=== PATIENT | female | born 1950 | race Caucasian/White ===

== ENCOUNTER 2017-11-22 01:05 | Emergency (ER) | payer MEDICARE ==
[~2017-11-22] VITALS: Ht 165.1 cm; Wt 72.6 kg
[~2017-11-22 01:05] MED LIST: ACET500T73 PO; ALPR0.5T PO; ASPI-667 PO; BUDE0.5A3 IH; BUDE0.5A3 NEB; BUPR150T6 PO; CARI350T14 PO; CEFP200T PO; CEFT1FRO2 IV; CLOP75TA52 PO; CYAN1TAB29 PO; DEXA1TAB PO; DONE5TAB53 PO; DULO30CA2 PO; FENT1PAT76 TD; GUAI200T3 PO; GUAI600T31 PO; HYDR-3470 PO; IBUP200T63 PO; IBUPROFEN; LEVE10007 PO; LEVO750T25 PO; LISI1TAB7 PO; LOSA1TAB22 PO; METH40VI2 IJ; MORP5VIA IV; Magnesium Oxide PO; NEBI5TAB2 PO; NITR100C58 PO; PANT40TA5 PO; PANT40VI IV; POTA20TA89 PO; PROP20TA PO; SIMV40TA3 PO; TRAM50TA PO; VANC1VIA3 IV; [UNRECOGNIZED DRUG - OTHER]
[2017-11-22] MEDS ORDERED: CATAPRES ONE (01:23)
[2017-11-22 01:24] VITALS: BP 198/117
[2017-11-22] MEDS ORDERED: CATAPRES PO STA (01:24)
[2017-11-22 01:27] VITALS: BP 204/121
[2017-11-22] MEDS ORDERED: NITROSTAT SL PRN (01:30)
--- NOTE | 2017-11-22 01:32 | ER.PDOC ---
General Chief Complaint: General Complaint Stated Complaint: HIGH BLOOD PRESSURE TRAVEL OUT OF US: No Time seen by MD: 01:30 Source: patient Exam Limitations: no limitations History of Present Illness Initial Comments Elevated blood pressure at home. Severity: moderate Associated Symptoms: headaches (mild) Allergies: Coded Allergies: codeine (Verified Allergy, Severe, ITCHING, 05/29/16) Home Meds Active Scripts [Magnesium Oxide] 400 MG TABLET No Conflict Check, 400 MG PO DAILY for 30 Days, #30 TAB Prov:MICHELLE PLEITEZ MD 01/08/17 Potassium Chloride (Potassium Chloride) 20 Meq Tablet.er, 20 MEQ PO ACD for HYPOKALEMIA for 30 Days, #30 TAB Prov:MICHELLE PLEITEZ MD 01/08/17 Donepezil Hcl (ARICEPT) 5 Mg Tablet, 5 MG PO BID for 30 Days, #60 TABLET Prov:MICHELLE PLEITEZ MD 01/08/17 Nitrofurantoin Monohyd/M-Cryst (MACROBID 100 MG CAPSULE) 100 Mg Capsule, 100 MG PO BID for 10 Days, #20 CAPSULE Prov:MICHELLE PLEITEZ MD 01/08/17 Propranolol Hcl (PROPRANOLOL HCL) 20 Mg Tablet, 1-2 TAB PO Q6HR PRN for Hypertension SBP>160 for 30 Days, #60 TAB 2 Refills Take 1 tablets every 6-8 hours as needed for BP>150/90. Take 2 tablets if BP>170/100. Prov:MICHELLE PLEITEZ MD 10/26/16 Cyanocobalamin/Folic Acid (VITAMIN L85-HHSAY ACID TABLET) 1 Each Tablet, 1 EACH PO DAILY for B12 deficiency poor nutrition for 30 Days, #30 TAB 3 Refills Prov:MICHELLE PLEITEZ MD 10/25/16 Tramadol Hcl (TRAMADOL HCL) 50 Mg Tablet, 50 MG PO Q4HR PRN for PAIN for 10 Days , #60 TABLET 0 Refills Take 1 tablet every 4 hours as needed for post-traumatic headache pain. Prov:MICHELLE PLEITEZ MD 07/26/16 Acetaminophen (ACETAMINOPHEN) 500 Mg Tablet, 1000 MG PO Q6HR PRN for PAIN for 30 Days, #50 TABLET Take 1-2 tablets every 6 hours as needed for headache pain. Prov:MICHELLE PLEITEZ MD 07/26/16 Reported Medications Pantoprazole Sodium (PANTOPRAZOLE SODIUM) 40 Mg Tablet.dr, 40 MG PO DAILY 07/25/16 Levetiracetam (LEVETIRACETAM) 1,000 Mg Tablet, 2000 MG PO HS 03/27/13 Past Medical History Medical History: arrhythmia, hypertension Surgical History: back, cholecystectomy, hysterectomy Social History Smoking: non-smoker Alcohol Use: none Drug Use: none Review of Systems Constitutional: no symptoms reported EENTM: no symptoms reported Respiratory: no symptoms reported Cardiovascular: no symptoms reported Gastrointestinal: no symptoms reported Genitourinary: no symptoms reported All Other Systems: Reviewed and Negative Physical Exam General Appearance: No Apparent Distress, WD/WN EENT: eyes nml inspection Neck: Non-Tender, Full Range of Motion, Supple Respiratory: chest non-tender, lungs clear, normal breath sounds CVS: reg rate & rhythm, no murmur, no gallop, pulses nml Gastrointestinal: Normal Bowel Sounds, No Organomegaly, No Pulsatile Mass, Non Tender Back: Normal Inspection Extremities: Normal Range of Motion Neurologic/Psychiatric: sat tutor II-XII NML as Tested Skin: Normal Color Results/Orders Results/Orders Administered Medications Medications (Trade) Dose Ordered Sig/Veronica Route PRN Reason Start Time Stop Time Status Last Admin Dose Admin Clonidine (Catapres) 0.2 mg STAT STAT PO 11/22/17 01:24 11/22/17 01:30 DC 11/22/17 01:38 Nitroglycerin (Nitrostat) 0.4 mg PRN PRN SL CHEST PAIN 11/22/17 01:30 12/22/17 01:29 11/22/17 01:38 Clonazepam (Klonopin) 0.5 mg STAT STAT PO 11/22/17 01:33 11/22/17 01:34 DC 11/22/17 01:38 Departure Time of Disposition: 02:24 Disposition: 01 HOME, SELF-CARE Impression: Primary Impression: Uncontrolled hypertension Condition: Improved Referrals: MICHELLE PLEITEZ MD (PCP) PRIMARY CARE PROVIDER Additional Instructions: Continue home medications Keep a blood pressure diary Duration or Time Spent with Pa: 45 mins ALEXEY SAPP MD Nov 22, 2017 01:32
[2017-11-22] MEDS ORDERED: KLONOPIN PO STA (01:33)
[2017-11-22] MEDS ORDERED: KLONOPIN ONE (01:35)
[2017-11-22 01:45] VITALS: BP 182/104
[2017-11-22 02:04] VITALS: BP 189/111
[2017-11-22 02:30] VITALS: BP 150/90
[2017-11-22 02:45] VITALS: BP 150/90
== END 2017-11-22 02:40 | disposition home or self-care (01) ==
LOC: ER 01:05
DX: I10 Essential (primary) hypertension (principal); Z88.5 Allergy status to narcotic agent; Z90.49 Acquired absence of other specified parts of digestive tract; Z90.710 Acquired absence of both cervix and uterus
CPT/HCPCS: 99284

== ENCOUNTER 2018-10-09 16:10 | Emergency (ER) | payer MEDICARE ==
[~2018-10-09] VITALS: Ht 165.1 cm; Wt 65.8 kg
[2018-10-09 16:55] VITALS: BP 180/109
--- NOTE | 2018-10-09 16:56 | NUR ---
ARRIVAL PATIENT ARRIVED TO ED[facility] AMBULATORY WITH FAMILY, C/O OF RIGHT ELBOW PAIN FROM A FALL TODAY, PATIENT STATES SHE FELL OFF THE CURB, SMALL ABRASION AND MILD SWELLING NOTED. CAME TO THE ED FOR EVAL.
[2018-10-09] MEDS ORDERED: BOOSTRIX TDAP IM ONE (17:00)
[2018-10-09] MEDS ORDERED: ADACEL VIAL IM ONE (17:00)
--- NOTE | 2018-10-09 17:30 | ER.PDOC ---
General Chief Complaint: Extremities Stated Complaint: ARM INJURY Time seen by MD: 17:22 Source: patient Exam Limitations: no limitations History of Present Illness Occurred: just prior to arrival Where: street Severity: mild Modifying Factors: pain on movement Allergies: Coded Allergies: codeine (Verified Allergy, Severe, ITCHING, 05/29/16) Home Meds Active Scripts [Magnesium Oxide] 400 MG TABLET No Conflict Check, 400 MG PO DAILY for 30 Days, #30 TAB Prov:MICHELLE PLEITEZ MD 01/08/17 Potassium Chloride (Potassium Chloride) 20 Meq Tablet.er, 20 MEQ PO ACD for HYPOKALEMIA for 30 Days, #30 TAB Prov:MICHELLE PLEITEZ MD 01/08/17 Donepezil Hcl (ARICEPT) 5 Mg Tablet, 5 MG PO BID for 30 Days, #60 TABLET Prov:MICHELLE PLEITEZ MD 01/08/17 Nitrofurantoin Monohyd/M-Cryst (MACROBID 100 MG CAPSULE) 100 Mg Capsule, 100 MG PO BID for 10 Days, #20 CAPSULE Prov:MICHELLE PLEITEZ MD 01/08/17 Propranolol Hcl (PROPRANOLOL HCL) 20 Mg Tablet, 1-2 TAB PO Q6HR PRN for Hypertension SBP>160 for 30 Days, #60 TAB 2 Refills Take 1 tablets every 6-8 hours as needed for BP>150/90. Take 2 tablets if BP>170/100. Prov:MICHELLE PLEITEZ MD 10/26/16 Cyanocobalamin/Folic Acid (VITAMIN V11-VZVYC ACID TABLET) 1 Each Tablet, 1 EACH PO DAILY for B12 deficiency poor nutrition for 30 Days, #30 TAB 3 Refills Prov:MICHELLE PLEITEZ MD 10/25/16 Tramadol Hcl (TRAMADOL HCL) 50 Mg Tablet, 50 MG PO Q4HR PRN for PAIN for 10 Days, #60 TABLET 0 Refills Take 1 tablet every 4 hours as needed for post-traumatic headache pain. Prov:MICHELLE PLEITEZ MD 07/26/16 Acetaminophen (ACETAMINOPHEN) 500 Mg Tablet, 1000 MG PO Q6HR PRN for PAIN for 30 Days, #50 TABLET Take 1-2 tablets every 6 hours as needed for headache pain. Prov:MICHELLE PLEITEZ MD 07/26/16 Reported Medications Pantoprazole Sodium (PANTOPRAZOLE SODIUM) 40 Mg Tablet.dr, 40 MG PO DAILY 07/25/16 Levetiracetam (LEVETIRACETAM) 1,000 Mg Tablet, 2000 MG PO HS 03/27/13 Past Medical History Medical History: hypertension Surgical History: back, hysterectomy LMP (females 10-50): postmenopause Social History Smoking: non-smoker Alcohol Use: none Drug Use: none Reviewed Nursing Reviewed: Vital Signs, Abn. Noted Review of Systems All Other Systems: Reviewed and Negative Physical Exam General Appearance: Alert, No Apparent Distress Hand: nml inspection, non-tender Wrist: nml inspection, non-tender, nml ROM Forearm/Elbow: nml ROM, tenderness, swelling Arm/Shoulder: nml inspection, non-tender, nml ROM 1 - TENDER 1 - TENDER, ABRAISON, EDEMA Neuro/Vasc/Tendon: sensation nml, motor nml, no vascular compromise, tendon function nml Skin: warm/dry Head/ENT: nml inspection, pharynx nml Neck/Back: nml inspection, non-tender Respiratory: chest non-tender, breath sounds nml CVS: heart sounds normal Abdomen: non-tender, no organomegaly Results/Orders Results/Orders Orders - CHELA HOYT MD Xr Forearm Rt (10/09/18 16:56) Diphth,Pertuss(Acell),Tet Vac (Boostrix (10/09/18 17:00) Diph,Pertuss(Acell),Tet Vac/Pf (Adacel V (10/09/18 17:00) Vital Signs Date Time Temp Pulse Resp B/P (MAP) Pulse Ox O2 Delivery O2 Flow Rate FiO2 10/09/18 16:55 98.2 96 18 180/109 (132) 93 Nasal Canula 2.00 10/09/18 16:52 98.2 96 18 93 Nasal Canula 10/09/18 16:51 98.2 96 18 Administered Medications Medications (Trade) Dose Ordered Sig/Veronica Route PRN Reason Start Time Stop Time Status Last Admin Dose Admin Diphtheria/ Tetanus/Acell Pertussis (Boostrix Tdap) 0.5 ml ONCE ONCE IM 10/09/18 17:00 10/09/18 17:02 DC 10/09/18 17:04 0.5 ML Departure Time of Disposition: 17:33 Disposition: 01 HOME, SELF-CARE Impression: Primary Impression: Contusion Condition: Improved Referrals: MICHELLE PLEITEZ MD (PCP) PRIMARY CARE PROVIDER Duration or Time Spent with Pa: 18 M CHELA HOYT MD Oct 09, 2018 17:30
[2018-10-09 17:31] VITALS: BP 177/93
--- NOTE | 2018-10-09 17:38 | DIREP ---
PROCEDURE:XRAY FOREARM 2 VWS-RT COMPARISON:None. INDICATIONS:fall FINDINGS: BONES:No fracture identified. Degenerative change, including marginal osteophytosis subchondral sclerosis JOINTS:Normal. SOFT TISSUES:Normal. OTHER:No additional findings. CONCLUSION: 1. No fracture identified. 2. Degenerative change. Dictated by: Santiago Dey MD on 10/09/2018 at 05:36 PM
== END 2018-10-09 17:45 | disposition home or self-care (01) ==
LOC: ER 16:10
DX: S50.11XA Contusion of right forearm, initial encounter (principal); I10 Essential (primary) hypertension; Z23 Encounter for immunization; Z79.899 Other long term (current) drug therapy; Z88.5 Allergy status to narcotic agent; Z90.710 Acquired absence of both cervix and uterus; W10.1XXA Fall (on)(from) sidewalk curb, initial encounter; Y93.89 Activity, other specified; Y92.488 Other paved roadways as the place of occurrence of the external cause; Y99.8 Other external cause status
CPT/HCPCS: 90471; 90715; 99284; 73090-RT

== ENCOUNTER 2018-11-28 00:12 | Emergency (ER) | payer MEDICARE ==
[~2018-11-28] VITALS: Ht 165.1 cm; Wt 81.6 kg
[~2018-11-28 00:12] MED LIST changes: +LISI1TAB20 PO; -LISI1TAB7 PO
--- NOTE | 2018-11-28 00:30 | NUR ---
ARRIVAL PT ARRIVED TO THE ED ACCOMPANIED BY HER C/O HEADACHE AND BURNING STOMACH. PT PLACED ON CP MONITOR AND TRIAGE DONE
[2018-11-28 00:33] VITALS: BP 204/107
[2018-11-28] MEDS ORDERED: CATAPRES PO STA ×2 (00:33→01:56)
[2018-11-28] MEDS ORDERED: ULTRAM PO STA (00:33)
--- NOTE | 2018-11-28 00:37 | ER.PDOC ---
General Chief Complaint: Headache Stated Complaint: NAUSEA,HIGH BP, HAEACHE TRAVEL OUT OF US: No Time seen by MD: 12:33 Source: patient Exam Limitations: no limitations History of Present Illness Timing/Duration: 4-6 hours Severity: moderate Modifying Factors: improves with medication, improves with rest Associated Symptoms: headaches, nausea/vomiting Allergies: Coded Allergies: codeine (Verified Allergy, Severe, ITCHING, 05/29/16) Home Meds Active Scripts [Magnesium Oxide] 400 MG TABLET No Conflict Check, 400 MG PO DAILY for 30 Days, #30 TAB Prov:MICHELLE PLEITEZ MD 01/08/17 Potassium Chloride (Potassium Chloride) 20 Meq Tablet.er, 20 MEQ PO ACD for HYPOKALEMIA for 30 Days, #30 TAB Prov:MICHELLE PLEITEZ MD 01/08/17 Donepezil Hcl (ARICEPT) 5 Mg Tablet, 5 MG PO BID for 30 Days, #60 TABLET Prov:MICHELLE PLEITEZ MD 01/08/17 Nitrofurantoin Monohyd/M-Cryst (MACROBID 100 MG CAPSULE) 100 Mg Capsule, 100 MG PO BID for 10 Days, #20 CAPSULE Prov:MICHELLE PLEITEZ MD 01/08/17 Propranolol Hcl (PROPRANOLOL HCL) 20 Mg Tablet, 1-2 TAB PO Q6HR PRN for Hypertension SBP>160 for 30 Days, #60 TAB 2 Refills Take 1 tablets every 6-8 hours as needed for BP>150/90. Take 2 tablets if BP>170/100. Prov:MICHELLE PLEITEZ MD 10/26/16 Cyanocobalamin/Folic Acid (VITAMIN A51-XYTEL ACID TABLET) 1 Each Tablet, 1 EACH PO DAILY for B12 deficiency poor nutrition for 30 Days, #30 TAB 3 Refills Prov:MICHELLE PLEITEZ MD 10/25/16 Tramadol Hcl (TRAMADOL HCL) 50 Mg Tablet, 50 MG PO Q4HR PRN for PAIN for 10 Days, #60 TABLET 0 Refills Take 1 tablet every 4 hours as needed for post-traumatic headache pain. Prov:MICHELLE PLEITEZ MD 07/26/16 Acetaminophen (ACETAMINOPHEN) 500 Mg Tablet, 1000 MG PO Q6HR PRN for PAIN for 30 Days, #50 TABLET Take 1-2 tablets every 6 hours as needed for headache pain. Prov:MICHELLE PLEITEZ MD 07/26/16 Reported Medications Pantoprazole Sodium (PANTOPRAZOLE SODIUM) 40 Mg Tablet.dr, 40 MG PO DAILY 07/25/16 Levetiracetam (LEVETIRACETAM) 1,000 Mg Tablet, 2000 MG PO HS 03/27/13 Past Medical History Medical History: hypertension Surgical History: back, cholecystectomy, hysterectomy LMP (females 10-50): hysterectomy Social History Smoking: non-smoker Alcohol Use: none Drug Use: none Reviewed Nursing Reviewed: Vital Signs, Abn. 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 (11/28/18 00:32) Helicobacter Pylori (11/28/18 00:32) D-Dimer (11/28/18 00:32) Ekg-Routine (11/28/18 00:32) Clonidine Hcl (Catapres) (11/28/18 00:33) Tramadol Hcl (Ultram) (11/28/18 00:33) Clonidine Hcl (Catapres) (11/28/18 00:52) Tramadol Hcl (Ultram) (11/28/18 00:53) Ondansetron (Zofran Odt) (11/28/18 01:06) Famotidine (Pepcid) (11/28/18 01:06) Ondansetron (Zofran Odt) (11/28/18 01:07) Famotidine (Pepcid) (11/28/18 01:08) Mag Hydrox/Aluminum Hyd/Simeth (Mylanta) (11/28/18 01:24) Lidocaine Hcl (Lidocaine Viscous) (11/28/18 01:24) Dicyclomine Hcl (Bentyl Liquid) (11/28/18 01:24) Lidocaine Hcl (Lidocaine Viscous) (11/28/18 01:30) Dicyclomine Hcl (Bentyl Liquid) (11/28/18 01:31) Mag Hydrox/Aluminum Hyd/Simeth (Mylanta) (11/28/18 01:32) Clonidine Hcl (Catapres) (11/28/18 01:56) Clonidine Hcl (Catapres) (11/28/18 02:00) Vital Signs Date Time Temp Pulse Resp B/P (MAP) Pulse Ox O2 Delivery O2 Flow Rate FiO2 11/28/18 02:04 63 195/85 11/28/18 01:07 61 196/98 11/28/18 00:33 97.8 59 20 11/28/18 00:33 97.8 59 20 204/107 (139) 99 Room Air 11/28/18 00:30 97.8 59 20 99 Room Air Administered Medications Medications (Trade) Dose Ordered Sig/Veronica Route PRN Reason Start Time Stop Time Status Last Admin Dose Admin Clonidine (Catapres) 0.1 mg STAT STAT PO 11/28/18 01:56 11/28/18 01:57 DC 11/28/18 02:04 0.1 MG Clonidine (Catapres) 0.2 mg STAT STAT PO 11/28/18 00:33 11/28/18 00:35 DC 11/28/18 01:07 0.2 MG Dicyclomine HCl (Bentyl Liquid) 20 mg STAT STAT PO 11/28/18 01:24 11/28/18 01:27 DC 11/28/18 01:38 20 MG Famotidine (Pepcid) 20 mg STAT STAT PO 11/28/18 01:06 11/28/18 01:08 DC 11/28/18 01:13 20 MG Lidocaine HCl (Lidocaine Viscous) 15 ml STAT STAT MM 11/28/18 01:24 11/28/18 01:27 DC 11/28/18 01:38 15 ML Ondansetron HCl (Zofran Odt) 4 mg STAT STAT SL 11/28/18 01:06 11/28/18 01:08 DC 11/28/18 01:13 4 MG Tramadol HCl (Ultram) 100 mg STAT STAT PO 11/28/18 00:33 11/28/18 00:35 DC 11/28/18 01:07 100 MG Laboratory Tests Test 11/28/18 00:36 White Blood Count 9.1 10^3/uL (4.5-11.0) Red Blood Count 4.46 10^6/uL (4.00-5.20) Hemoglobin 13.3 g/dL (12.0-15.0) Hematocrit 38.1 % (36.0-46.0) Mean Corpuscular Volume 85.4 fL (78-100) Mean Corpuscular Hemoglobin 29.8 pg (26-34) Mean Corpuscular Hemoglobin Concent 34.9 g/dL (33-37) Red Cell Distribution Width 13.2 % (11.5-14.5) Platelet Count 255 10^3/uL (150-400) Mean Platelet Volume 11.4 fL (7.8-11.0) H Neutrophils (%) (Auto) 65.0 % (41.0-85.0) Lymphocytes (%) (Auto) 24.6 % (24.0-44.0) Monocytes (%) (Auto) 8.4 % (5.0-12.0) Neutrophils # (Auto) 5.9 10^3/uL (1.8-7.7) Lymphocytes # (Auto) 2.3 10^3/uL (1.0-4.8) Monocytes # (Auto) 0.8 10^3/uL (0.3-0.8) Absolute Immature Granulocyte (auto 0.02 10^3 u/L (0-2) Immature Granulocytes % 0.20 % (0.00-0.50) Eosinophils % 1.4 % (0.0-5.0) Basophils % 0.4 % (0.0-0.2) H Basophils # 0.0 10^3/uL (0.0-0.1) Eosinophil Count 0.1 10^3/uL (0.0-0.2) Prothrombin Time 9.9 SEC (9.4-11.5) Prothrombin Time INR (Non-Therap) 1.0 Activated Partial Thromboplast Time 23.4 SEC (24.67-30.72) D-Dimer 0.39 mg/L (0.19-0.49) Sodium Level 137 mmol/L (132-145) Potassium Level 3.9 mmol/L (3.6-5.2) Chloride Level 104.0 mmol/L (96-109) Carbon Dioxide Level 26.3 mmol/L (20.0-32) Anion Gap 10.6 Blood Urea Nitrogen 15 mg/dL (7-18) Creatinine 1.24 mg/dL (0.59-1.40) Estimated GFR () 51.9 (>/=60) BUN/Creatinine Ratio 12.0 Glucose Level 119 mg/dL (70-110) H Calcium Level 9.0 mg/dL (8.4-10.5) Total Bilirubin 0.3 mg/dL (0.2-1.0) Aspartate Amino Transferase (AST) 28 U/L (0-35) Alanine Aminotransferase (ALT) 9 U/L (12-78) L Alkaline Phosphatase 106 U/L (50-136) Total Creatine Kinase 51 U/L (26-192) Troponin I < 0.02 ng/mL (0.00-0.05) Pro-B-Type Natriuretic Peptide 214 pg/mL (0-125) H Total Protein 6.8 g/dL (6.4-8.2) Albumin 3.3 g/dL (3.4-5.0) L Globulin 3.5 Helicobacter pylori Screen NEGATIVE (NEGATIVE) EKG/XRAY/CT/US EKG: NSR, no ST T wave changes Course Sepsis Screening Results: Posi: POSITIVE SEPSIS RISK Duration or Total Time Spent w: 18 M Vitals & review Data Vital Sign - Last 24 Hours 11/28/18 11/28/18 11/28/18 11/28/18 00:30 00:33 00:33 01:07 Temp 97.8 97.8 97.8 Pulse 59 59 59 61 Resp 20 B/P (MAP) 204/107 (139) 196/98 Pulse Ox 99 99 O2 Delivery Room Air Room Air 11/28/18 02:04 Pulse 63 B/P (MAP) 195/85 Laboratory Tests Test 11/28/18 00:36 White Blood Count 9.1 10^3/uL Red Blood Count 4.46 10^6/uL Hemoglobin 13.3 g/dL Hematocrit 38.1 % Mean Corpuscular Volume 85.4 fL Mean Corpuscular Hemoglobin 29.8 pg Mean Corpuscular Hemoglobin Concent 34.9 g/dL Red Cell Distribution Width 13.2 % Platelet Count 255 10^3/uL Mean Platelet Volume 11.4 fL Neutrophils (%) (Auto) 65.0 % Lymphocytes (%) (Auto) 24.6 % Monocytes (%) (Auto) 8.4 % Neutrophils # (Auto) 5.9 10^3/uL Lymphocytes # (Auto) 2.3 10^3/uL Monocytes # (Auto) 0.8 10^3/uL Absolute Immature Granulocyte (auto 0.02 10^3 u/L Immature Granulocytes % 0.20 % Eosinophils % 1.4 % Basophils % 0.4 % Basophils # 0.0 10^3/uL Eosinophil Count 0.1 10^3/uL Prothrombin Time 9.9 SEC Prothrombin Time INR (Non-Therap) 1.0 Activated Partial Thromboplast Time 23.4 SEC D-Dimer 0.39 mg/L Sodium Level 137 mmol/L Potassium Level 3.9 mmol/L Chloride Level 104.0 mmol/L Carbon Dioxide Level 26.3 mmol/L Anion Gap 10.6 Blood Urea Nitrogen 15 mg/dL Creatinine 1.24 mg/dL Estimated GFR () 51.9 BUN/Creatinine Ratio 12.0 Glucose Level 119 mg/dL Calcium Level 9.0 mg/dL Total Bilirubin 0.3 mg/dL Aspartate Amino Transf (AST/SGOT) 28 U/L Alanine Aminotransferase (ALT/SGPT) 9 U/L Alkaline Phosphatase 106 U/L Total Creatine Kinase 51 U/L Troponin I < 0.02 ng/mL Pro-B-Type Natriuretic Peptide 214 pg/mL Total Protein 6.8 g/dL Albumin 3.3 g/dL Globulin 3.5 Helicobacter pylori Screen NEGATIVE Sepsis Infection Criteria Pres: None O2 Sat by Pulse Oximetry: 99 Departure Time of Disposition: 02:36 Disposition: 01 HOME, SELF-CARE Impression: Primary Impression: Hypertensive urgency Condition: Improved Referrals: MICHELLE PLEITEZ MD (PCP) PRIMARY CARE PROVIDER Duration or Time Spent with Pa: CHELA SALINAS MD Nov 28, 2018 00:36
--- NOTE | 2018-11-28 00:41 | PCM.EKG ---
[facility] Test Date: 2018-11-28 Test Time: 00:41:27 Pat Name: SERAFIN ULLOA Department: Room: Gender: F [place] Oven Operator: KRISTINA : 1950 Requested By: CHELA HOYT Order Number: [id number] [place] MD: Measurements Intervals [place] Rate: 59 P: 78 CT: 140 QRS: 64 QRSD: 80 T: 71 QT: 408 QTc: 403 Interpretive Statements Sinus bradycardia Otherwise normal ECG Compared to ECG 09/28/2017 19:48:46 Sinus rhythm no longer present Please click the below link to view image of tracing.
[2018-11-28 00:46] LABS: BASOPHIL % 0.4 % (0.0-0.2); EOSINOPHIL # 0.1 10^3/uL (0.0-0.2); EOSINOPHIL % 1.4 % (0.0-5.0); HEMOGLOBIN 13.3 g/dL (12.0-15.0); LYMPHOCYTES # 2.3 10^3/uL (1.0-4.8); LYMPHOCYTES % 24.6 % (24.0-44.0); MEAN CELL HGB 29.8 pg (26-34); MEAN CELL HGB CONCENTRATION 34.9 g/dL (33-37); MEAN CORP VOLUME 85.4 fL (78-100); MEAN PLATELET VOLUME 11.4 fL (7.8-11.0); MONOCYTES # 0.8 10^3/uL (0.3-0.8); MONOCYTES % 8.4 % (5.0-12.0); NEUTROPHIL # 5.9 10^3/uL (1.8-7.7); RED CELL DISTRIBUTION WIDTH 13.2 % (11.5-14.5); WHITE BLOOD CELL 9.1 10^3/uL (4.5-11.0)
[2018-11-28] MEDS ORDERED: CATAPRES ONE ×2 (00:52→02:00)
[2018-11-28] MEDS ORDERED: ULTRAM ONE (00:53)
[2018-11-28] MEDS ORDERED: ZOFRAN ODT SL STA (01:06)
[2018-11-28] MEDS ORDERED: PEPCID PO STA (01:06)
[2018-11-28] MEDS ORDERED: ZOFRAN ODT ONE (01:07)
[2018-11-28] MEDS ORDERED: PEPCID ONE (01:08)
[2018-11-28 01:17] LABS: ALANINE AMINOTRANSFERASE(ML) 9 U/L (12-78); ALKALINE PHOSPHATASE 106 U/L (50-136); ASPARTATE AMINO TRANSFERASE 28 U/L (0-35); CARBON DIOXIDE 26.3 mmol/L (20.0-32); GLUCOSE 119 mg/dL (70-110)
[2018-11-28] MEDS ORDERED: MYLANTA PO STA (01:24)
[2018-11-28] MEDS ORDERED: LIDOCAINE VISCOUS MM STA (01:24)
[2018-11-28] MEDS ORDERED: BENTYL LIQUID PO STA (01:24)
[2018-11-28 01:30] VITALS: BP 175/95
[2018-11-28] MEDS ORDERED: LIDOCAINE VISCOUS ONE (01:30)
[2018-11-28] MEDS ORDERED: BENTYL LIQUID ONE (01:31)
[2018-11-28] MEDS ORDERED: MYLANTA ONE (01:32)
[2018-11-28 03:14] VITALS: BP 184/88
== END 2018-11-28 02:30 | disposition home or self-care (01) ==
LOC: ER 00:12
DX: I16.0 Hypertensive urgency (principal); I10 Essential (primary) hypertension; Z79.899 Other long term (current) drug therapy; Z88.5 Allergy status to narcotic agent; Z90.49 Acquired absence of other specified parts of digestive tract; Z90.710 Acquired absence of both cervix and uterus
CPT/HCPCS: 36415; 80053; 82550; 83880; 84484; 85025; 85379; 85610; 85730; 86677; 93005; 99285; J3490; Q0162

== ENCOUNTER 2018-12-03 05:29 | Inpatient (IN) | payer MEDICARE ==
[~2018-12-03] VITALS: Ht 165.1 cm; Wt 83.5 kg
[2018-12-03] VITALS (55 sets, daily range): BP systolic 110–189; BP diastolic 50–120
[~2018-12-03 05:29] MED LIST changes: +SIMV40TA20 PO; -SIMV40TA3 PO
[2018-12-03] MEDS ORDERED: ANTIVERT PO STA (05:55)
[2018-12-03] MEDS ORDERED: ZOFRAN ODT SL STA (05:55)
[2018-12-03] MEDS ORDERED: ZOFRAN ODT ONE (05:57)
--- NOTE | 2018-12-03 06:00 | NUR ---
XRAY AND CT CALLED EDITA PEDROZA FOR IMAGING
--- NOTE | 2018-12-03 06:04 | PCM.EKG ---
[facility] Test Date: 2018-12-03 Test Time: 06:05:07 Pat Name: SERAFIN ULLOA Department: Room: 329 Gender: F Lead Atg Developer: MARY : 1950 Requested By: ALEXEY SAPP Order Number: [id number] Reading MD: Alexey SAPP Measurements Intervals [place] Rate: 66 P: 75 [place]: 156 QRS: 131 QRSD: 166 T: -7 QT: 510 QTc: 534 Interpretive Statements Normal sinus rhythm Right bundle branch block T wave abnormality, consider inferolateral ischemia Abnormal ECG Compared to ECG 09/28/2017 19:48:46 Right bundle-branch block now present T-wave abnormality now present Possible ischemia now present Electronically Signed On 12-06-2018 18:27:40 CDT by Alexey SAPP Please click the below link to view image of tracing.
[2018-12-03 06:12] LABS: BASOPHIL % 0.1 % (0.0-0.2); EOSINOPHIL # 0.1 10^3/uL (0.0-0.2); EOSINOPHIL % 0.5 % (0.0-5.0); LYMPHOCYTES # 1.9 10^3/uL (1.0-4.8); LYMPHOCYTES % 18.4 % (24.0-44.0); MEAN CORP HGB 29.6 pg (26-34); MONOCYTES # 1.2 10^3/uL (0.3-0.8); MONOCYTES % 11.9 % (5.0-12.0); NEUTROPHILS % 68.6 % (41.0-85.0); PLATELET COUNT 262 10^3/uL (150-400); RED CELL DISTRIBUTION WIDTH 12.8 % (11.5-14.5)
--- NOTE | 2018-12-03 06:12 | ER.PDOC ---
General Chief Complaint: Dizziness Stated Complaint: DIZZINESS Time seen by MD: 06:02 Source: patient Exam Limitations: no limitations History of Present Illness Initial Comments Dizziness this morning, patient got up to go to the bathroom felt dizzy and fell. She deuce on the floor briefly but was able to get up herself and sit besides her bed. called EMS. She continues to be dizzy and lightheaded but denies chest pain or SOB. Occurred: just prior to arrival Severity: moderate Usually: walks w/o assistance Worsened By: changing position Allergies: Coded Allergies: codeine (Verified Allergy, Severe, ITCHING, 05/29/16) Home Meds Active Scripts [Magnesium Oxide] 400 MG TABLET No Conflict Check, 400 MG PO DAILY for 30 Days, #30 TAB Prov:MICHELLE PLEITEZ MD 01/08/17 Potassium Chloride (Potassium Chloride) 20 Meq Tablet.er, 20 MEQ PO ACD for HYPOKALEMIA for 30 Days, #30 TAB Prov:MICHELLE PLEITEZ MD 01/08/17 Donepezil Hcl (ARICEPT) 5 Mg Tablet, 5 MG PO BID for 30 Days, #60 TABLET Prov:MICHELLE PLEITEZ MD 01/08/17 Nitrofurantoin Monohyd/M-Cryst (MACROBID 100 MG CAPSULE) 100 Mg Capsule, 100 MG PO BID for 10 Days, #20 CAPSULE Prov:MICHELLE PLEITEZ MD 01/08/17 Propranolol Hcl (PROPRANOLOL HCL) 20 Mg Tablet, 1-2 TAB PO Q6HR PRN for Hypertension SBP>160 for 30 Days, #60 TAB 2 Refills Take 1 tablets every 6-8 hours as needed for BP>150/90. Take 2 tablets if BP>170/100. Prov:MICHELLE PLEITEZ MD 10/26/16 Cyanocobalamin/Folic Acid (VITAMIN V24-VNPQE ACID TABLET) 1 Each Tablet, 1 EACH PO DAILY for B12 deficiency poor nutrition for 30 Days, #30 TAB 3 Refills Prov:MICHELLE PLEITEZ MD 10/25/16 Tramadol Hcl (TRAMADOL HCL) 50 Mg Tablet, 50 MG PO Q4HR PRN for PAIN for 10 Days, #60 TABLET 0 Refills Take 1 tablet every 4 hours as needed for post-traumatic headache pain. Prov:MICHELLE PLEITEZ MD 5/18/17 Acetaminophen (ACETAMINOPHEN) 500 Mg Tablet, 1000 MG PO Q6HR PRN for PAIN for 30 Days, #50 TABLET Take 1-2 tablets every 6 hours as needed for headache pain. Prov:MICHELLE PLEITEZ MD 07/26/16 Reported Medications Pantoprazole Sodium (PANTOPRAZOLE SODIUM) 40 Mg Tablet.dr, 40 MG PO DAILY 07/25/16 Levetiracetam (LEVETIRACETAM) 1,000 Mg Tablet, 2000 MG PO HS 03/27/13 Past Medical History Medical History: hypertension Surgical History: back, cholecystectomy, hysterectomy LMP (females 10-50): hysterectomy Social History Smoking: non-smoker Alcohol Use: none Drug Use: none Review of Systems Constitutional: weakness Ears: dizziness Respiratory: no symptoms reported Cardiovascular: no symptoms reported Gastrointestinal: no symptoms reported All Other Systems: Reviewed and Negative Physical Exam General Appearance: alert, no distress EENT: nml eye inspection, PERRL, no nystagmus, nml ENT inspection, pharynx nml, TM's nml Neck: supple Respiratory: no resp distress, breath sounds nml CVS: reg rate & rhythm, heart sounds.nml Abdomen: non-tender, no organomegaly, no distention Extremities: non-tender, nml ROM, no pedal edema Neuro/Psych: nml orientation, nml speech/cognition, nml mood/affect Cranial Nerves: nml as tested, no evidence of acute CVA Sensorimotor: nml motor, nml sensation Results/Orders Results/Orders Orders - ALEXEY SAPP MD Cbc With Auto Diff (12/03/18 05:55) Comprehensive Metabolic Panel (12/03/18 05:55) Creatine Kinase (12/03/18 05:55) Troponin I (12/03/18 05:55) PT (12/03/18 05:55) Partial Thromboplastin Time. (12/03/18 05:55) Xr Chest 1v (12/03/18 05:55) Ekg-Routine (12/03/18 05:55) Urinalysis (12/03/18 05:55) Ondansetron (Zofran Odt) (12/03/18 05:55) Meclizine Hcl (Antivert) (12/03/18 05:55) Ondansetron (Zofran Odt) (12/03/18 05:57) Ct Head Wo Contrast (12/03/18 05:58) Urine Culture (12/03/18 06:00) Vital Signs Date Time Temp Pulse Resp B/P (MAP) Pulse Ox O2 Delivery O2 Flow Rate FiO2 12/03/18 05:30 98.3 68 16 98 Room Air 12/03/18 05:30 98.3 63 16 12/03/18 05:30 98.3 63 16 146/104 (118) 96 Room Air 11/28/18 02:03 63 Administered Medications Medications (Trade) Dose Ordered Sig/Veronica Route PRN Reason Start Time Stop Time Status Last Admin Dose Admin Meclizine HCl (Antivert) 25 mg STAT STAT PO 12/03/18 05:55 12/03/18 05:58 DC 12/03/18 06:04 25 MG Ondansetron HCl (Zofran Odt) 4 mg STAT STAT SL 12/03/18 05:55 12/03/18 05:58 DC 12/03/18 06:00 4 MG Laboratory Tests Test 12/03/18 06:00 12/03/18 06:06 Urine Collection Type VOID Urine Color YELLOW (YELLOW) Urine Appearance CLEAR (CLEAR) Urine Bilirubin NEGATIVE MG/DL (NEGATIVE) Urine Ketones 5 mg/dL (NEGATIVE) H Urine Specific Harvey 1.020 (1.005-1.035) Urine pH 6 (5.0-6.0) Urine Protein 30 mg/dL (NEGATIVE) H Urine Urobilinogen NORMAL (NEGATIVE) Urine Nitrate NEGATIVE (NEGATIVE) Urine Leukocyte Esterase 500/uL 2+ (NEGATIVE) Urine Blood NEGATIVE (NEGATIVE) Urine Glucose NORMAL (NEGATIVE) Urine Comment White Blood Count 10.2 10^3/uL (4.5-11.0) Red Blood Count 4.86 10^6/uL (4.00-5.20) Hemoglobin 14.4 g/dL (12.0-15.0) Hematocrit 37.4 % (36.0-46.0) Mean Corpuscular Volume 77.0 fL (78-100) L Mean Corpuscular Hemoglobin 29.6 pg (26-34) Mean Corpuscular Hemoglobin Concent 38.5 g/dL (33-37) H Red Cell Distribution Width 12.8 % (11.5-14.5) Platelet Count 262 10^3/uL (150-400) Mean Platelet Volume 11.4 fL (7.8-11.0) H Neutrophils (%) (Auto) 68.6 % (41.0-85.0) Lymphocytes (%) (Auto) 18.4 % (24.0-44.0) L Monocytes (%) (Auto) 11.9 % (5.0-12.0) Neutrophils # (Auto) 7.0 10^3/uL (1.8-7.7) Lymphocytes # (Auto) 1.9 10^3/uL (1.0-4.8) Monocytes # (Auto) 1.2 10^3/uL (0.3-0.8) H Absolute Immature Granulocyte (auto 0.05 10^3 u/L (0-2) Immature Granulocytes % 0.50 % (0.00-0.50) Eosinophils % 0.5 % (0.0-5.0) Basophils % 0.1 % (0.0-0.2) Basophils # 0.0 10^3/uL (0.0-0.1) Eosinophil Count 0.1 10^3/uL (0.0-0.2) Prothrombin Time 10.4 SEC (9.4-11.5) Prothrombin Time INR (Non-Therap) 1.0 Activated Partial Thromboplast Time 23.9 SEC (24.67-30.72) Sodium Level 119 mmol/L (132-145) #*L Potassium Level 2.6 mmol/L (3.6-5.2) L Chloride Level 82.0 mmol/L (96-109) *L Carbon Dioxide Level 22.9 mmol/L (20.0-32) Anion Gap 16.7 Blood Urea Nitrogen 15 mg/dL (7-18) Creatinine 1.21 mg/dL (0.59-1.40) Estimated GFR () 53.4 (>/=60) BUN/Creatinine Ratio 12.0 Glucose Level 123 mg/dL (70-110) H Calcium Level 8.8 mg/dL (8.4-10.5) Total Bilirubin 0.9 mg/dL (0.2-1.0) Aspartate Amino Transferase (AST) 41 U/L (0-35) H Alanine Aminotransferase (ALT) 11 U/L (12-78) L Alkaline Phosphatase 116 U/L (50-136) Total Creatine Kinase 130 U/L (26-192) Troponin I < 0.02 ng/mL (0.00-0.05) Total Protein 7.0 g/dL (6.4-8.2) Albumin 3.5 g/dL (3.4-5.0) Globulin 3.5 EKG/XRAY/CT/US EKG: NSR EKG Comments: RBBB XRAY: chest (No active disease) CT Comments: No acute intracranial abnormality Course Sepsis Screening Results: Posi: POSITIVE SEPSIS RISK Duration or Total Time Spent w: 20 M Vitals & review Data Vital Sign - Last 24 Hours 11/28/18 12/03/18 12/03/18 12/03/18 02:03 05:30 05:30 05:30 Temp 98.3 98.3 98.3 Pulse 63 63 63 68 Resp 16 16 16 B/P (MAP) 146/104 (118) Pulse Ox 96 98 O2 Delivery Room Air Room Air Laboratory Tests Test 12/03/18 06:00 12/03/18 06:06 Urine Collection Type VOID Urine Color YELLOW Urine Appearance CLEAR Urine Bilirubin NEGATIVE MG/DL Urine Ketones 5 mg/dL Urine Specific Harvey 1.020 Urine pH 6 Urine Protein 30 mg/dL Urine Urobilinogen NORMAL Urine Nitrate NEGATIVE Urine Leukocyte Esterase 500/uL 2+ Urine Blood NEGATIVE Urine Glucose NORMAL Urine Comment White Blood Count 10.2 10^3/uL Red Blood Count 4.86 10^6/uL Hemoglobin 14.4 g/dL Hematocrit 37.4 % Mean Corpuscular Volume 77.0 fL Mean Corpuscular Hemoglobin 29.6 pg Mean Corpuscular Hemoglobin Concent 38.5 g/dL Red Cell Distribution Width 12.8 % Platelet Count 262 10^3/uL Mean Platelet Volume 11.4 fL Neutrophils (%) (Auto) 68.6 % Lymphocytes (%) (Auto) 18.4 % Monocytes (%) (Auto) 11.9 % Neutrophils # (Auto) 7.0 10^3/uL Lymphocytes # (Auto) 1.9 10^3/uL Monocytes # (Auto) 1.2 10^3/uL Absolute Immature Granulocyte (auto 0.05 10^3 u/L Immature Granulocytes % 0.50 % Eosinophils % 0.5 % Basophils % 0.1 % Basophils # 0.0 10^3/uL Eosinophil Count 0.1 10^3/uL Prothrombin Time 10.4 SEC Prothrombin Time INR (Non-Therap) 1.0 Activated Partial Thromboplast Time 23.9 SEC Sodium Level 119 mmol/L Potassium Level 2.6 mmol/L Chloride Level 82.0 mmol/L Carbon Dioxide Level 22.9 mmol/L Anion Gap 16.7 Blood Urea Nitrogen 15 mg/dL Creatinine 1.21 mg/dL Estimated GFR () 53.4 BUN/Creatinine Ratio 12.0 Glucose Level 123 mg/dL Calcium Level 8.8 mg/dL Total Bilirubin 0.9 mg/dL Aspartate Amino Transf (AST/SGOT) 41 U/L Alanine Aminotransferase (ALT/SGPT) 11 U/L Alkaline Phosphatase 116 U/L Total Creatine Kinase 130 U/L Troponin I < 0.02 ng/mL Total Protein 7.0 g/dL Albumin 3.5 g/dL Globulin 3.5 Sepsis Infection Criteria Pres: None O2 Sat by Pulse Oximetry: 98 Departure Time of Disposition: 06:45 Disposition: 09 ADMITTED INPATIENT Impression: Primary Impression: Acute hyponatremia Additional Impressions: Hypokalemia due to loss of potassium Dizziness and giddiness Condition: Stable Referrals: MICHELLE PLEITEZ MD (PCP) PRIMARY CARE PROVIDER Comments Admitted to Dr. Mcleod Duration or Time Spent with Pa: 60 mins Critical Care Note Total Time (mins): 60 Problem Qualifiers ALEXEY SAPP MD Dec 03, 2018 06:11
--- NOTE | 2018-12-03 06:20 | NUR ---
URINE COLLECTED AND TAKEN TO LAB
[2018-12-03 06:22] LABS: BILIRUBIN,URINE NEGATIVE (NEGATIVE); UROBILINOGEN,URINE NORMAL (NEGATIVE)
[2018-12-03 06:24] LABS: APPEARANCE,URINE CLEAR (CLEAR); UA COLOR YELLOW (YELLOW)
[2018-12-03 06:30] LABS: ALANINE AMINOTRANSFERASE(ML) 11 U/L (12-78); ALKALINE PHOSPHATASE 116 U/L (50-136); ASPARTATE AMINO TRANSFERASE 41 U/L (0-35); CALCIUM 8.8 mg/dL (8.4-10.5); CARBON DIOXIDE 22.9 mmol/L (20.0-32); GLUCOSE 123 mg/dL (70-110)
--- NOTE | 2018-12-03 06:38 | NUR ---
LAB NA 119, K+ 2.6, CL 82 CALLED FROM LAB. NOTIFIED DR. SAPP OF RESULTS.
--- NOTE | 2018-12-03 06:41 | DIREP ---
PROCEDURE:CT HEAD OR BRAIN W/O CONTRAST COMPARISON:[facility], CT, CT HEAD BRAIN W/O CONTRAST, 09/28/2017, 07:40 PM. INDICATIONS:Dizziness TECHNIQUE:CT images were created without intravenous contrast. FINDINGS: VENTRICLES:The ventricles are normal in size and configuration. CEREBRUM:There are low-density changes in the periventricular white matter. CEREBELLUM:Negative. BRAINSTEM:Negative. BASAL CISTERNS:Negative. HEMORRHAGE:No MASS LESION:No ACUTE INFARCT:No SKULL:Normal. SINUSES:Normal. OTHER:None CONCLUSION: 1. No significant change since the prior examination. No acute abnormalities. 2. Microvascular ischemic white matter changes. Dictated by: Felix Murrieta M.D. on 12/03/2018 at 06:38 AM
--- NOTE | 2018-12-03 06:42 | DIREP ---
PROCEDURE:CHEST 1 VIEW COMPARISON:[facility], CT, CT CHEST W/O, 01/06/2017, 04:06 PM. [facility], CR, XRAY CHEST SINGLE VW, 01/05/2017, 09:20 AM. INDICATIONS:Dizziness FINDINGS: LUNGS/PLEURA:No significant pulmonary parenchymal abnormalities. No effusions. VASCULATURE:Normal. Unremarkable pulmonary vasculature. CARDIAC:Normal. No cardiac silhouette abnormality or cardiomegaly. MEDIASTINUM:Normal. No visible mass or adenopathy. BONES:Normal. No fracture or visible bony lesion. OTHER:Negative. CONCLUSION:No acute cardiopulmonary abnormalities. Dictated by: Felix Murrieta M.D. on 12/03/2018 at 06:40 AM
--- NOTE | 2018-12-03 06:45 | NUR ---
UPDATE DR. SAPP ON THE PHONE WITH DR. ELIZABETH FOR ADMIT.
[2018-12-03] MEDS ORDERED: NS 1000ML/KCL 20MEQ 1,000 ML IV STA (06:47)
[2018-12-03] MEDS ORDERED: KLOR-CON 10 PO STA (06:47)
[2018-12-03] MEDS ORDERED: POTA10CA PO (06:55)
[2018-12-03] MEDS ORDERED: DULO60CA7 PO (06:55)
[2018-12-03] MEDS ORDERED: OLME1TAB23 PO (06:55)
[2018-12-03] MEDS ORDERED: METO50TA6 PO (06:55)
[2018-12-03] MEDS ORDERED: KLOR-CON 10 PO ONE (06:59)
[2018-12-03] MEDS ORDERED: NS 1000ML/KCL 20MEQ 1,000 ML IV ONE (06:59)
--- NOTE | 2018-12-03 07:37 | NUR ---
ADMIT PATIENT TAKEN TO ICU 2 VIA STRETCHER IV OF NS WITH 20KCL INFUSING AT 500ML/HR WITHOUT COMPLICATION. PATIENT WAS ABLE TO STAND AND TRANSFER TO BED. REPORT GIVEN TO VALDO BROOKS.
--- NOTE | 2018-12-03 07:45 | NUR ---
ARRIVAL PATIENT ARRIVED TO UNIT VIA STRETCHER ACCOMPANIED BY ER NURSE Eduardo REILLY RN. PATIENT AWAKE, ORIENTED X 3. SPEECH CLEAR AND COHERENT. PATIENT FORGETFUL AND REINSTRUCTED ON PURPOSE OF HOSPITALIZED D/T HER ELECTROLYTE IMBALANCE. PATIENT POOR BALANCE NOTED PATIENT TRANSFERRED FROM STRETCHER TO ICU BED WITH STANDBY ASSIST. PATIENT ORIENTED TO ICU BED, ROOM, AND CALL LIGHT. PATIENT CONNECTED TO BEDSIDE TELEMONITOR, READING SR 72 AT THIS TIME. REPORT RECEIVED FROM Eduardo REILLY RN AND PATIENT CARE ASSUMED.
--- NOTE | 2018-12-03 08:15 | NUR ---
DR. ELIZABETH AT BEDSIDE ASSESSING PATIENT AND DISCUSSING PLAN OF CARE WITH PATIENT AND SPOUSE.
--- NOTE | 2018-12-03 08:30 | NUR ---
MOBILITY LEVEL B PATIENT ABLE TO GET OUT OF BED WITH MINIMAL ASSISTANCE D/T DIZZINESS. PATIENT REINSTRUCTED ON USE OF CALL LIGHT AND WEARING NONSKID SOCKS WHEN OUT OF BED. PATIENT AND SPOUSE VOICED UNDERSTANDING.
--- NOTE | 2018-12-03 08:40 | PCM.EKG ---
[facility] Test Date: 2018-12-03 Test Time: 08:35:10 Pat Name: SERAFIN ULLOA Department: Room: 329 Gender: F Technical Training Specialist: BRANDON : 1950 Requested By: MIRNA ELIZABETH Order Number: [id number] Reading MD: Ac Stark Measurements Intervals Oral Rate: 67 P: 77 MN: 150 QRS: 78 QRSD: 90 T: 70 QT: 466 QTc: 492 Interpretive Statements Normal sinus rhythm Nonspecific ST and T wave abnormality Prolonged QT Abnormal ECG Compared to ECG 09/28/2017 19:48:46 ST (T wave) deviation now present Prolonged QT interval now present Electronically Signed On 12-24-2018 8:45:17 CDT by Ac Stark Please click the below link to view image of tracing.
[2018-12-03] MEDS: TYLENOL PO PRN ×2 (08:57→19:37)
[2018-12-03] MEDS: LOPRESSOR PO SCH (08:58)
[2018-12-03] MEDS ORDERED: REGLAN IV ONE (09:00)
[2018-12-03] MEDS ORDERED: ZOFRAN IV PRN (09:00)
--- NOTE | 2018-12-03 09:50 | NUR ---
MOBILITY/UA SPECIMEN FOR OSMOLARITY COLLECTED AND SENT TO LAB. PATIENT TRANSFER SELF FROM BSC TO ICU BED. NO DISTRESS NOTED. HOB ELEVATED >45 DEGREES. CALL LIGHT WITHIN EASY REACH.
--- NOTE | 2018-12-03 09:55 | NUR ---
VERBAL ORDER: GIVE 2 GMS OF MAGNESIUM RIDER TIMES 2, PO MAG OX 400MG BID, POTASSIUM RIDER 20MEQ OVER 2 HOURS. START NS 125ML/HR ADD POTASSIUM 20MEQ TO EACH LITER. REPEAT CMP, MAGNESIUM LEVEL, TROPONIN IN AM. TROPONIN 12PM TODAY. SCHEDULE HEART CATH IN AM IF POTASSIUM OVER 3.5 RBAV
[2018-12-03] MEDS ORDERED: SODIUM IV ONE (10:21)
[2018-12-03] MEDS ORDERED: MAGNESIUM SULFATE 50 ML IV ONE ×2 (10:30)
[2018-12-03] MEDS: NS 1000ML/KCL 20MEQ 1,000 ML IV SCH ×3 (10:30→20:55)
[2018-12-03] MEDS ORDERED: KCL 20MEQ/100ML 100 ML IV ONE (10:30)
--- NOTE | 2018-12-03 10:30 | NUR ---
1:2 MAGNESIUM 2GM IVPB STARTED. BP 158/58 , HR 67 TELEMETRY READING SINUS RHYTHM.
--- NOTE | 2018-12-03 11:21 | NUR ---
2:2 MAGNESIUM 2GM IVPB STARTED.
--- NOTE | 2018-12-03 12:10 | NUR ---
LUNCH/MOBILITY PATIENT SAT UP IN SITTING POSITION FOR LUNCH. SPOUSE AT BEDSIDE VISITING WITH PATIENT. NO DISTRESS NOTED.
--- NOTE | 2018-12-03 12:23 | NUR ---
BP 146/64 HR 62 TELEMETRY READING SINUS RHYTHM
--- NOTE | 2018-12-03 12:52 | NUR ---
POTASSIUM 20MEQ IVPB STARTED AT THE RECOMMEND RATE OF 10MEQ/HR PATIENT INSTRUCTED ON S/E TO EXPECT SUCH BURNING SENSATION AT IV SITE, IF SO CALL NURSE AND RATE CAN BE SLOWED DOWN MORE.
--- NOTE | 2018-12-03 14:06 | NUR ---
MOBILITY PATIENT UP TO BSC WITH STANDBY ASSIST. PATIENT URINATED STRONG PALOMA URINE. PATIENT SELF CLEANSED AND PATIENT ASSISTED WITH STANDBY ASSIST BACK INTO ICU BED. NO DISTRESS NOTED. HOB ELEVATED APPROXIMATELY 45 DEGREES, CALL LIGHT WITHIN EASY REACH, SIDE RAILS UP X2. PATIENT LEFT LAYING ON HER LEFT SIDE RESTING WITH EYES CLOSE. EVEN CHEST RISE NOTED.
--- NOTE | 2018-12-03 14:15 | HPH ---
ADMIT DATE: 12/03/2018 IDENTIFICATION: A 68-year-old female. CHIEF COMPLAINT: Syncope, loss of consciousness, dizziness, lightheadedness, marked weakness, fatigue. HISTORY OF PRESENT ILLNESS: The patient is a 68-year-old white female who has underlying history of hypertension and hypertensive heart disease and she has seen Dr. Pepe the past, has been on antihypertensive agents in the form of her ARB agent with a diuretic and I am not sure whether she is compliant to her medications and she takes Inderal 20 mg q. 6 hours p.r.n. one to two tablets as prescribed by Dr. Pepe and she, at the present time, came with a syncopal episode, passed out in the bathroom for several minutes and her initial EKG was showing right bundle-branch block, which is a new finding with QT prolongation with a QTc of 530 milliseconds and she reverted back to a narrow QRS complex with a normal QT on the subsequent EKG, troponin was negative. Her sodium was 119, potassium 2.9, magnesium was very low at 1.2 and hence was admitted with multiple biochemical abnormalities along with syncopal episodes and QT prolongation and rule out acute coronary event for further evaluation and management. ALLERGIES: CODEINE. MEDICATIONS: She has been on magnesium 400 mg twice a day. She is on ARB with diuretic one tablet daily. I think she is on Benicar HCT 40/12.5 one tablet daily, Aricept 5 mg twice a day for underlying dementia, Macrobid 100 mg tablet twice a day, Ultram 50 mg q. 4 hours p.r.n., Tylenol on p.r.n. basis, Protonix 40 mg once a day. She is on Keppra 1 gram in the morning and 2 grams at nighttime. PAST MEDICAL HISTORY: Cholecystectomy, hysterectomy, back surgery, hypertension, hypertensive heart disease, progressive dementia, history of seizure disorder. SOCIAL HISTORY: Nonsmoker, no ethanol abuse. FAMILY HISTORY: Positive for heart problems on her sister. Younger sister has had a cardiac bypass surgery and has got ischemic cardiomyopathy and congestive heart failure and diabetes runs in the family. PHYSICAL EXAMINATION: GENERAL: She was alert, awake, oriented. Height 165 cm, weight 81 kg, BMI is 29.9. VITAL SIGNS: Pulse 69, respirations 20, blood pressure 150/80, saturation 97%. HEENT: Unremarkable. NECK: No JVD was discernible, no carotid bruits. SKIN: Dry. LUNGS: Essentially clear. HEART: Sounds S1, S2 normal. No murmurs, gallop rhythm. ABDOMEN: Rounded, no organomegaly. EXTREMITIES: Distal pulses fairly well felt. NEUROLOGIC: Intact. LABORATORY DATA: [ ] chloride was 82, creatinine was 1.2, magnesium was 1.2 and INR was normal and she had leukocyte esterase positive. Head CT was showing microvascular ischemia. No focal lesions. IMAGING STUDIES: Chest x-ray was unremarkable. EKG initially QTc prolongation [ ] milliseconds, right bundle-branch block and diffuse ST-T wave changes and subsequent EKG showed narrow QRS complex and a QTc was normal with inferolateral ST-T wave changes. IMPRESSION: Syncope, prolonged QT interval, multiple electrolyte abnormalities with hyponatremia, hypochloremia and hypokalemia and hypomagnesemia, which could contribute to QT prolongation. PLAN: At this time with include magnesium supplementation, potassium supplementation and rule out acute coronary event by serial EKG, enzymes and we will do cardiac catheterization in the morning. Further management will depend on the clinical course. Laxmichand MD Shani DR: GREGORIO/deanne JOB# [id number]
[2018-12-03] MEDS: KLOR-CON 10 PO SCH (17:50)
--- NOTE | 2018-12-03 18:45 | NUR ---
REPORT RECEIVED FROM TODD GALVIN RN. ASSUMED PT CARE.
[2018-12-03] MEDS: MAG-OX PO SCH (20:55)
[2018-12-04] VITALS (27 sets, daily range): BP systolic 125–195; BP diastolic 60–111
--- NOTE | 2018-12-04 04:47 | NUR ---
METAL BONDING ASSEMBLER AT BEDSIDE FOR BLOOD DRAW
--- NOTE | 2018-12-04 05:05 | NUR ---
CHG BATH ADMINISTERED.
[2018-12-04 05:16] LABS: ALANINE AMINOTRANSFERASE(ML) 10 U/L (12-78); ALKALINE PHOSPHATASE 96 U/L (50-136); ASPARTATE AMINO TRANSFERASE 34 U/L (0-35); CALCIUM 8.2 mg/dL (8.4-10.5); CARBON DIOXIDE 19.9 mmol/L (20.0-32); GLUCOSE 92 mg/dL (70-110)
[2018-12-04] MEDS: NS 1000ML/KCL 20MEQ 1,000 ML IV SCH ×2 (05:46→19:33)
[2018-12-04] MEDS ORDERED: PHENERGAN PO ONE ×2 (06:00→07:00)
[2018-12-04] MEDS ORDERED: NS 1000ML 1,000 ML IV SCH (06:00)
[2018-12-04] MEDS ORDERED: VALIUM PO ONE ×2 (06:00→07:00)
[2018-12-04] MEDS ORDERED: HEPARIN ONE (06:25)
[2018-12-04] MEDS ORDERED: SUBLIMAZE ONE (06:25)
[2018-12-04] MEDS ORDERED: VERSED ONE (06:25)
[2018-12-04] MEDS ORDERED: NS 1000ML 1,000 ML ONE ×2 (06:26→07:01)
[2018-12-04] MEDS ORDERED: XYLOCAINE ONE (06:26)
[2018-12-04] MEDS ORDERED: COZAAR PO STA (06:30)
--- NOTE | 2018-12-04 06:44 | NUR ---
REPORT TO ONCOMING SHIFT. PT CARE RELINQUISHED.
--- NOTE | 2018-12-04 06:50 | NUR ---
RECEIVED REPORT AND PATIENT CARE ASSUMED.
[2018-12-04] MEDS: MAG-OX PO SCH ×2 (07:21→21:15)
[2018-12-04] MEDS: LOPRESSOR PO SCH (07:32)
--- NOTE | 2018-12-04 07:45 | NUR ---
PRE OP MEDICATION GIVEN AT THIS TIME PATIENT BILATERAL GROIN PREPPED FOR HEART MARKET RESEARCH ASSISTANT AND CLEANSED WITH CHG WIPES.
--- NOTE | 2018-12-04 08:10 | NUR ---
DOWN TO INDUSTRIAL PROPERTY APPRAISER
--- NOTE | 2018-12-04 08:30 | NUR ---
DISCHARGE PLAN/OFF UNIT PATIENT IS OFF UNIT FOR HEART CATH. CM LEFT CONTACT INFORMATION AT BEDSIDE AND SPOKE WITH TODD LYLE ABOUT CONTACTING CM IF PATIENT HAD DISCHARGE NEEDS.
--- NOTE | 2018-12-04 09:15 | NUR ---
BACK FROM MEDICAL DATA ANALYST PATIENT AWAKE, SPEECH CLEAR. PATIENT FORGETFUL REQUIRING REMINDING OF WHY SHE HAS TO BE ON FLAT TIME. PATIENT AND SPOUSE REINSTRUCTED ON FLAT TIME, TO KEEP RIGHT LOWER EXT STRAIGHT AND TO NOT LIFT HEAD OFF OF PILLOW FOR THE NEXT 2 HOURS. REPORT RECEIVED FROM Jorje DOAN RN. RIGHT FEMORAL CATH SITE SOFT, NO BRUISING OR HEMATOMA NOTED, TEGADERM DRESSING C/D/I, NO BLOOD NOTED. PEDAL PULSE 2+, CAP REFILL LESS THAN 6 SEC, EQUAL COLOR, WARMTH, AND SENSATION PRESENT TO BLE. CALL LIGHT WITHIN EASY REACH. SIDE RAILS UP X2. SPOUSE AT BEDSIDE.
--- NOTE | 2018-12-04 09:23 | CCRH ---
DATE OF SERVICE: 12/04/2018 PRECATHETERIZATION DIAGNOSES: A 68-year-old female with history of dyslipidemia, hypertension, QTC prolongation to 530 milliseconds, documented syncope, family history for premature atherosclerosis, history of chest pains in the past on recurrent occasions and rule out coronary artery disease. POSTCATHETERIZATION DIAGNOSES: Left main patent, type 3 LAD encircling the apex with a fairly large size diagonal branch, fully patent. Circumflex good size vessel, appears to be fully patent, codominant right coronary artery appears to be fully patent with a large AV tanya branch. Left ventricle is normal in size with good wall contractility, ejection fraction of 60%. ANESTHESIA: 2% lidocaine. PREOPERATIVE MEDICATIONS: Phenergan 50 mg p.o., Valium 2.5 mg p.o., Versed 2 mg IV and fentanyl 50 mcg IV. ANTICOAGULATION: Heparin 2000 units intra-arterially, 2000 units in the flush solution, 1000 units in the dye solution. Dye use is Omnipaque. Total amount 76 mL. CATHETERS: JL4 6-Chadian, JR4 6-Chadian, and 6-Chadian angled pigtail catheter. ARTERIAL TIME: 5 minutes. FLUOROSCOPY TIME: 1.5 minutes. PROCEDURES: Left heart catheterization, bilateral selective coronary arteriography, left ventriculography via right femoral Nati approach. NARRATION OF PROCEDURE: Under local anesthesia, right femoral artery was punctured percutaneously by arterial needle, guide wire passed in right femoral artery, 6-Chadian Cordis sheath introduced, side port of the sheath used for femoral arterial pressure monitoring. Sheath anchored with suture. Left Nati catheter introduced over guide wire into ascending aorta left coronary artery cannulated and left coronary angiography performed in [place] and MCINTYRE projections with craniocaudal applications to visualize all branches. Left catheter exchanged for right coronary catheter and right coronary angiography performed in [place] and MCINTYRE. This catheter exchanged for 6-Chadian pigtail catheter and catheter crossed the aortic valve and left ventricular LVEDP measured and LV gram performed in 30 degrees MCINTYRE view with 30 mL Omnipaque dye and panning of descending aorta attempted. Patient tolerated procedure well. No complications of procedure. Angio-Seal deployed for hemostasis. HEMODYNAMICS: LVEDP is 5 mm, LV pressure 155/5, femoral artery pressure 150/76 with a mean of 85. No gradient across the aorta. FINAL CONCLUSION: Normal coronary angiogram, normal LV function, possibility of posterior mitral leaflet small prolapse, no mitral regurgitation noted. RECOMMENDATIONS: Optimization of medical therapy and risk factor modification. Hardik Mcleod MD DR: GREGORIO/deanne JOB# [id number]
--- NOTE | 2018-12-04 11:00 | NUR ---
ORTHOSTATIC BP/FLAT TIME OVER @ 1058 LAYING BP 135/81, HR 67 @ 1100 SITTING BP 110/69, @ 1104 STANDING BP 106/76, HR 66. PATIENT VERY UNSTEADY ON HER FEEL, PATIENT SWAYING WHILE TRYING TO STAND STILL FOR BP, DENIES FEELING DIZZY OR LIGHT HEADED AT THIS TIME. PATIENT ASSISTED WITH STANDBY ASSIST TO [facility]. PATIENT TRANSFERRED SELF TO BED WITHOUT DIFFICULTY. NO DISTRESS NOTED. HEART CATH SITE RECHECK, NO BRUISING, NO HEMATOMA NOTED. DRESSING C/D/I. PATIENT LEFT LAYING IN BED WITH HOB ELEVATED APPROXIMATELY 30 DEGREES.
--- NOTE | 2018-12-04 12:40 | NUR ---
URINE CULTURE RESULTS CALLED TO DR. ELIZABETH, VERBAL ORDER RECEIVED FOR ROCEPHIN 1GM EVERY 24HOURS.
[2018-12-04] MEDS ORDERED: NS 100ML 100 ML IV ONE (12:53)
[2018-12-04] MEDS ORDERED: ROCEPHIN ONE (12:54)
[2018-12-04] MEDS ORDERED: ROCEPHIN 1 GM in NS 100ML 100 ML IV SCH (13:00)
[2018-12-04] MEDS: KLOR-CON 10 PO SCH (19:34)
[2018-12-05 00:32] VITALS: BP 125/62
[2018-12-05] MEDS: NS 1000ML/KCL 20MEQ 1,000 ML IV SCH ×2 (02:28→10:30)
[2018-12-05 04:31] VITALS: BP 152/75
--- NOTE | 2018-12-05 05:39 | PNH ---
DATE: 12/04/2018 SUBJECTIVE: The patient is more alert, awake, oriented and she is comprehending well. She has history of vague chest heaviness and family history of premature atherosclerosis, a sister into her 40s had an GA. She is my patient and she has got parents who have had heart problems and she had nonspecific ST-T wave changes , resolution of right bundle-branch block and QTC prolongation of 530 milliseconds probably, which was related to hypomagnesemia and hypokalemia, but T-inversions are noted in the inferolateral leads, underlying ischemia is a consideration. Her history is very vague. Hence, she was taken to the cardiac catheterization lab and her coronaries were normal. LV function was intact and her vital signs are stable and her hyponatremia was corrected from 119 to 125 and chloride from 82 to 95 and her creatinine is 1.13 from 1.21 and her magnesium was 1.2, which has come up to 2.3 after 2 magnesium riders and magnesium oxide 400 mg twice a day. OBJECTIVE: VITAL SIGNS: Stable. LUNGS: Clear. HEART: Sounds normal. HEENT: Unremarkable. IMPRESSION: QT prolongation, hypomagnesemia, hypokalemia, abnormal EKG with inferolateral T inversion, rule out ischemia, family history of premature atherosclerosis. History of vague chest pain, hypertension, hypertensive heart disease, prior history of significant smoking. RECOMMENDATIONS: Cardiac catheterization done, coronaries normal. We will put her on losartan 50 mg once a day and metoprolol 50 mg once a day and we will transfer to the floor and continue her IV and recheck her electrolytes tomorrow and discharge planning by 12/05/2018. Laxmichand MD Shani DR: GREGORIO/deanne JOB# [id number] MAURA
--- NOTE | 2018-12-05 06:26 | NUR ---
REPORT TO DARWIN JAMES
--- NOTE | 2018-12-05 06:45 | NUR ---
REPORT RECEIVED REPORT, ASSUMED CARE FOR PATIENT AT THIS TIME.
[2018-12-05 08:02] VITALS: BP 154/79
[2018-12-05] MEDS: MAG-OX PO SCH (08:13)
[2018-12-05] MEDS: LOPRESSOR PO SCH (08:13)
[2018-12-05] MEDS ORDERED: COZAAR PO SCH (09:00)
[2018-12-05] MEDS ORDERED: CEPH-350 PO (10:35)
[2018-12-05] MEDS ORDERED: Magnesium Oxide PO (10:35)
[2018-12-05 11:33] LABS: BASOPHIL % 0.1 % (0.0-0.2); EOSINOPHIL % 0.4 % (0.0-5.0); LYMPHOCYTES % 14.5 % (24.0-44.0); MEAN CORP HGB 29.8 pg (26-34); MONOCYTES # 0.8 10^3/uL (0.3-0.8); MONOCYTES % 11.3 % (5.0-12.0); NEUTROPHIL # 5.2 10^3/uL (1.8-7.7); NEUTROPHILS % 73.6 % (41.0-85.0); RED CELL DISTRIBUTION WIDTH 13.7 % (11.5-14.5)
[2018-12-05 11:34] LABS: CALCIUM 8.3 mg/dL (8.4-10.5)
[2018-12-05 12:16] VITALS: BP 138/85
[2018-12-05 13:28] VITALS: BP 138/85
--- NOTE | 2018-12-05 13:30 | NUR ---
DISCHARGE PATIENT BEING DISCHARGED HOME AT THIS TIME IN STABLE CONDITION. PATIENT LIVES AT HOME WITH HER SPOUSE AND DENIES NEEDING ADDITIONAL RESOURCES AT THIS TIME. PATIENT WAS ASSISTED DOWNSTAIRS VIA WHEELCHAIR. RELINQUISHED CARE FOR PATIENT AT THIS TIME.
--- NOTE | 2018-12-06 00:11 | DSH ---
DATE OF DISCHARGE: 12/05/2018 FINAL DIAGNOSIS: Syncope, new right bundle branch block, QTc prolongation of 539 milliseconds for possibility of underlying ventricular arrhythmias with torsades de pointes symptoms due to QTc prolongation secondary to hypomagnesemia, hypokalemia, hyponatremia, very likely could be diuretic induced hypertension, hypertensive heart disease. No flow obstructive coronary artery disease, chronic diastolic heart failure, depression. Please refer to my history and physical to the point of my impression. HOSPITAL COURSE: The patient is a 68-year-old white female who had a syncopal episode documented with loss of consciousness and when she came in, her sodium was 119 and chlorides were 82 and her creatinine was 1.21 and her magnesium was 1.2 and she had QTC prolongation with right bundle branch block with a regular rate of 65-70 and QTc was 530 milliseconds. Subsequently, she had narrow QRS complex and QTc improved after electrolyte replacement and she has diffuse inferolateral T-wave changes and possibility of ischemia was considered, cardiac catheterization was done on 12/04/2018, normal coronary arteries were noted and ejection fraction was normal, has chronic diastolic heart failure and now her electrolytes were fully normalized with a sodium of 134 and her magnesium was 1.8, potassium was 4.4, BUN and creatinine were normal and blood pressure was stable and she was dismissed on Keflex 500 mg 3 times a day for urinary tract infection, magnesium oxide 400 mg twice a day, Tylenol 1 gram q. 6 hours p.r.n. pain and Cymbalta 60 mg once a day, metoprolol 50 mg once a day. Olmesartan/hydrochlorothiazide 40/12.5 once a day, potassium 20 mEq once a day and she was to see me back in the clinic on 12/10/2018. We will do CMP, magnesium, and CBC on that day in the clinic. Jose Alejandrohand MD STAN Mcleod: GREGORIO/deanne JOB# [id number]
--- NOTE | 2018-12-06 00:44 | ECHO ---
DATE OF SERVICE: The patient is a 68-year-old female. Hypertension, hypertensive heart disease, syncope, intermittent right bundle branch block, QTC prolongation of 530 milliseconds, loss of consciousness, hypertensive heart disease, chronic diastolic heart failure, assess LV function and valvular abnormality. FINDINGS: Mitral valve shows normal motion, mild reversal of E to A ratio, normal aorta, normal aortic root opening. Tricuspid valve, mild tricuspid regurgitation, 1.1 meter velocity. Right ventricle is normal. Right atrium is normal. Left atrium is mildly enlarged in 4 chamber view to 4.99 cm. Left ventricle is normal in size, around 3 cm end diastolic dimension and 1.92 cm end-systolic dimension with concentric left ventricular hypertrophy with septum being around 1.76 cm, which seems to be over estimation, but the septum is thicker than the posterior wall. Overall, contractility is normal. Ejection fraction is about 50% and end-diastolic volume is 70 mL. Hence, mild left ventricular hypertrophy with grade 1 diastolic dysfunction, intact LV systolic function, mild biatrial enlargement, no valvular abnormality documented and mild mitral regurgitation. Laxmichand MD Shani DR: GREGORIO/deanne JOB# [id number]
== END 2018-12-05 14:29 | disposition home or self-care (01) | DRG 287 ==
LOC: EDBD 05:29 → ER 05:29 → ICU 07:20 → MS 12-04 15:00
PROVIDERS: ADMIT Specialist; ATTEND Specialist
PROC: 4A023N7 Measurement of Cardiac Sampling and Pressure, Left Heart, Percutaneous Approach (ICD-10-PCS; principal; 2018-12-04)
PROC: B2111ZZ Fluoroscopy of Multiple Coronary Arteries using Low Osmolar Contrast (ICD-10-PCS; 2018-12-04)
PROC: B2151ZZ Fluoroscopy of Left Heart using Low Osmolar Contrast (ICD-10-PCS; 2018-12-04)
DX: I45.81 Long QT syndrome (principal); E87.1 Hypo-osmolality and hyponatremia; N39.0 Urinary tract infection, site not specified; I50.32 Chronic diastolic (congestive) heart failure; I34.1 Nonrheumatic mitral (valve) prolapse; I45.10 Unspecified right bundle-branch block; E87.6 Hypokalemia; E83.42 Hypomagnesemia; E87.8 Other disorders of electrolyte and fluid balance, not elsewhere classified; I11.0 Hypertensive heart disease with heart failure; F03.90 Unspecified dementia, unspecified severity, without behavioral disturbance, psychotic disturbance, mood disturbance, and anxiety; T50.2X5A Adverse effect of carbonic-anhydrase inhibitors, benzothiadiazides and other diuretics, initial encounter; G40.909 Epilepsy, unspecified, not intractable, without status epilepticus; Z82.49 Family history of ischemic heart disease and other diseases of the circulatory system; Z83.3 Family history of diabetes mellitus; Z90.710 Acquired absence of both cervix and uterus; Z79.899 Other long term (current) drug therapy; Z88.5 Allergy status to narcotic agent; Z90.49 Acquired absence of other specified parts of digestive tract
CPT/HCPCS: 36415; 70450; 71045; 80053; 81002; 82550; 83735; 83935; 84133; 84300; 84484; 85025; 85610; 85730; 87077; 87086; 87186; 93005; 93306; 93458; 99152; 99153; 99291; C1760; C1894; G0378; J0696; J1644; J2250; J2405; J2765; J3010; J3475; J3490; J7030; J7040; J7050; Q0162; Q9967; J3480

== ENCOUNTER 2019-10-01 19:12 | Observation (INO) | payer MEDICARE ==
[~2019-10-01] VITALS: Ht 165.1 cm; Wt 73.1 kg
[~2019-10-01 19:12] MED LIST changes: +CEPH-350 PO; +DULO60CA7 PO; +METO50TA6 PO; +OLME1TAB23 PO; +POTA10CA PO
[2019-10-01 19:15] VITALS: BP 110/40
[2019-10-01] MEDS ORDERED: LOMOTIL PO STA (19:21)
[2019-10-01] MEDS ORDERED: NS 1000ML 1,000 ML IV STA (19:21)
[2019-10-01] MEDS ORDERED: ZOFRAN IV STA (19:21)
--- NOTE | 2019-10-01 19:27 | ER.PDOC ---
General Chief Complaint: Requesting Medical Care Stated Complaint: FALL N/V/D Time seen by MD: 19:15 Source: patient, EMS Exam Limitations: no limitations History of Present Illness Initial Comments Patient c/o n/v/d multiple times onset last pm. Tonight, when getting up out of the bed, she had a near-syncopal episode (became light headed upon standing) and fell to the ground. She c/o worsening chronic neck pain. She denies fever or any COVID19 symptoms/exposure. Severity/Quality: moderate (n/v/d) Abdominal Pain Onset Location: Epigastric (discomfort) Associated Symptoms (vomiting): freq vomitng Associated Symptoms (diarrhea): mild Allergies: Coded Allergies: codeine (Verified Allergy, Severe, ITCHING, 05/29/16) Home Meds Active Scripts Cephalexin (KEFLEX) 500 Mg Capsule, 500 MG PO TID for 5 Days Prov:IMRNA ELIZABETH MD 12/05/18 [Magnesium Oxide] 400 MG TABLET No Conflict Check, 400 MG PO BID for 30 Days, #60 Prov:MIRNA ELIZABETH MD 12/05/18 Potassium Chloride (Potassium Chloride) 20 Meq Tablet.er, 20 MEQ PO ACD for HYPOKALEMIA for 30 Days, #30 TAB Prov:MICHELLE PLEITEZ MD 01/08/17 Acetaminophen (ACETAMINOPHEN) 500 Mg Tablet, 1000 MG PO Q6HR PRN for PAIN for 30 Days, #50 TABLET Take 1-2 tablets every 6 hours as needed for headache pain. Prov:MICHELLE PLEITEZ MD 07/26/16 Reported Medications Metoprolol Tartrate 50MG (LOPRESSER 50MG) 50 Mg Tablet, 1 TAB PO DAILY24, #60 TAB 5 Refills 12/03/18 Olmesartan/Hydrochlorothiazide (BENICAR HCT 40-12.5 MG TABLET) 1 Each Tablet, 1 TAB PO DAILY, #30 TAB 5 Refills 12/03/18 Duloxetine Hcl (CYMBALTA) 60 Mg Capsule.dr, 1 CAP PO DAILY, #90 CAP 3 Refills 12/03/18 Vital Signs First Vital Signs Date Time Temp Pulse Resp B/P (MAP) Pulse Ox O2 Delivery O2 Flow Rate FiO2 10/01/19 19:15 97.9 103 18 99 10/01/19 19:15 110/40 (63) Room Air Last Vital Signs Date Time Temp Pulse Resp B/P (MAP) Pulse Ox O2 Delivery O2 Flow Rate FiO2 10/01/19 19:15 97.9 103 18 110/40 (63) 99 Room Air Past Medical History Medical History: hypertension Surgical History: back, cholecystectomy, hysterectomy Social History Drug Use: none Constitutional: no symptoms reported EENTM: no symptoms reported Respiratory: no symptoms reported Cardiovascular: no symptoms reported Gastrointestinal: abdominal pain (epigastric), diarrhea, nausea, vomiting Musculoskeletal: see HPI (c/o neck pain after fall this evening) Skin: no symptoms reported Physical Exam General Appearance: No Apparent Distress, WD/WN, Obese HEENT: PERRL/EOMI, Normal ENT Inspection Neck: Supple, Normal Inspection Respiratory: chest non-tender, lungs clear, normal breath sounds, no respiratory distress, no accessory muscle use Cardiovascular: Regular Rate, Rhythm Gastrointestinal: Normal Bowel Sounds, Soft, Tenderness (mild epigastric, no rebound) Extremities: Normal Range of Motion, Non-Tender, Normal Inspection, No Pedal Edema, No Calf Tenderness Neurologic/Psychiatric: No Motor/Sensory Deficits, Alert, Normal Mood/Affect, Oriented x 3 Skin: Normal Color, Warm/Dry Results/Orders Results/Orders Orders - ADRIEN OVIEDO DO Cbc With Auto Diff (10/01/19 19:21) Comprehensive Metabolic Panel (10/01/19 19:21) Creatine Kinase (10/01/19 19:21) Creatine Kinase Mb (10/01/19 19:21) Troponin I (10/01/19 19:21) Probnp B-Type Filler Block Inserter Remover (10/01/19 19:21) PT (10/01/19 19:21) Partial Thromboplastin Time. (10/01/19 19:21) Helicobacter Pylori (10/01/19 19:21) Ekg-Routine (10/01/19 19:21) Saline Lock (10/01/19 19:21) Amylase (10/01/19 19:21) Lipase (10/01/19 19:21) Ct Head Wo Contrast (10/01/19 19:21) Ct Cervical Spine (10/01/19 19:21) Place Dominguez Catheter (10/01/19 19:21) 0.9 % Sodium Chloride (Ns 1000ml) (10/01/19 19:21) Ondansetron Hcl/Pf (Zofran) (10/01/19 19:21) Diphenoxylate Hcl/Atropine (Lomotil) (10/01/19 19:21) Clostridium Difficile Panel (10/01/19 19:21) 0.9 % Sodium Chloride (Ns 1000ml) (10/01/19 20:13) Troponin I (10/01/19 21:37) Clear Liquid Diet (10/02/19 Breakfast) Intake & Output (10/01/19:) Up In Chair (10/01/19:22) Cbc With Auto Diff (10/02/19 05:00) Comprehensive Metabolic Panel (10/02/19 05:00) Admit Orders (10/01/19:) Bed Alarm (10/01/19:) Fall Precautions (10/01/19:) Bedrest With Po Ambulat/Assist (10/01/19:) Vs Q4 X 24, Then Routine (10/01/19:) 0.9 % Sodium Chloride (Ns 1000ml) (10/01/19 23:30) Ondansetron Hcl/Pf (Zofran) (10/01/19 23:30) Diphenoxylate Hcl/Atropine (Lomotil) (10/01/19 23:30) Vital Signs Date Time Temp Pulse Resp B/P (MAP) Pulse Ox O2 Delivery O2 Flow Rate FiO2 10/01/19 19:15 97.9 103 18 110/40 (63) 99 Room Air 10/01/19 19:15 97.9 103 18 10/01/19 19:15 97.9 103 18 99 Administered Medications Medications (Trade) Dose Ordered Sig/Veronica Route PRN Reason Start Time Stop Time Status Last Admin Dose Admin Diphenoxylate HCl/ Atropine (Lomotil) 2 each STAT STAT PO 10/01/19 19:21 10/01/19 19:22 UNV 10/01/19 20:07 2 EACH Ondansetron HCl (Zofran) 4 mg STAT STAT IV 10/01/19 19:21 10/01/19 19:22 UNV 10/01/19 20:07 4 MG Sodium Chloride 1,000 ml @ 0 mls/hr Q0M STAT IV 10/01/19 20:13 10/01/19 20:15 DC 10/01/19 21:02 0 MLS/HR Sodium Chloride 1,000 ml @ 1,200 mls/hr Q50M STAT IV 10/01/19 19:21 10/01/19 20:10 UNV 10/01/19 20:07 1,200 MLS/HR Laboratory Tests Test 10/01/19 19:40 10/01/19 21:49 White Blood Count 12.6 10^3/uL (4.5-11.0) H Red Blood Count 4.88 10^6/uL (4.00-5.20) Hemoglobin 14.1 g/dL (12.0-15.0) Hematocrit 40.2 % (36.0-46.0) Mean Corpuscular Volume 82.4 fL (78-100) Mean Corpuscular Hemoglobin 28.9 pg (26-34) Mean Corpuscular Hemoglobin Concent 35.1 g/dL (33-36.5) Red Cell Distribution Width 12.9 % (11.5-14.5) Platelet Count 178 10^3/uL (150-400) Mean Platelet Volume 11.3 fL (7.8-11.0) H Neutrophils (%) (Auto) 78.8 % (41.0-85.0) Lymphocytes (%) (Auto) 9.7 % (24.0-44.0) L Monocytes (%) (Auto) 9.8 % (5.0-12.0) Neutrophils # (Auto) 9.9 10^3/uL (1.8-7.7) H Lymphocytes # (Auto) 1.22 10^3/uL1 (1.0-4.8) Monocytes # (Auto) 1.2 10^3/uL (0.3-0.8) H Absolute Immature Granulocyte (auto 0.03 10^3 u/L (0-2) Absolute Eosinophils (auto) 0.2 10^3/uL (0.0-0.2) Immature Granulocytes % 0.20 % (0.00-0.50) Eosinophils % 1.3 % (0.0-5.0) Basophils % 0.2 % (0.0-0.2) Basophils # 0.0 10^3/uL (0.0-0.1) Prothrombin Time 10.3 SEC (9.3-11.3) Prothrombin Time INR (Non-Therap) 1.0 Activated Partial Thromboplast Time 22.1 SEC (24.67-30.72) Sodium Level 134 mmol/L (132-145) Potassium Level 3.4 mmol/L (3.6-5.2) L Chloride Level 97.0 mmol/L (96-109) Carbon Dioxide Level 27.0 mmol/L (20.0-32) Anion Gap 13.4 Blood Urea Nitrogen 34 mg/dL (7-18) H Creatinine 1.61 mg/dL (0.59-1.40) H Estimated GFR () 38.3 (>/=60) Est GFR (CKD-EPI)(Non-Afr Andorran) 31.6 (>/=60) BUN/Creatinine Ratio 21.0 Glucose Level 116 mg/dL (70-110) H Calcium Level 9.0 mg/dL (8.4-10.5) Total Bilirubin 1.1 mg/dL (0.2-1.0) H Aspartate Amino Transferase (AST) 49 U/L (0-35) H Alanine Aminotransferase (ALT) 18 U/L (12-78) Alkaline Phosphatase 105 U/L (50-136) Total Creatine Kinase 45 U/L (26-192) Creatine Kinase MB 1.7 ng/mL (0.5-3.6) Troponin I < 0.02 ng/mL (0.00-0.05) 0.03 ng/mL (0.00-0.05) Pro-B-Type Natriuretic Peptide 1255 pg/mL (0-125) H Total Protein 7.3 g/dL (6.4-8.2) Albumin 3.7 g/dL (3.4-5.0) Globulin 3.6 Amylase Level 28 U/L (25-115) Lipase 102 U/L (114-286) L Helicobacter pylori Screen NEGATIVE (NEGATIVE) Progress Progress Patient has had no further n/v/d here. Bolused with 2 L NS. Troponin negative x 2, two hours apart. Patient unable to stand upright without becoming near- syncopal. WE will admit 23 hour obs for hydration EKG/XRAY/CT/US EKG: RBBB EKG Comments: computer reading says posterior NC--looks more c/w RBBB to me Consult/PCP Time Consult/PCP Called: 23:09 Consult/PCP: Dr. Haddad Reason/Comments: admit 23 hour obs Departure Time of Disposition: 23:10 Disposition: 09 ADMITTED INPATIENT Impression: Primary Impression: Gastroenteritis Additional Impressions: Volume depletion Vasovagal near syncope Condition: Improved Patient Instructions: Clear Liquid Diet, Diarrhea, Nausea and Vomiting, Viral Gastroenteritis Referrals: MICHELLE PLEITEZ MD (PCP) PRIMARY CARE PROVIDER Additional Instructions: Maintain a strictly clear liquid diet for 24 hours (anything you can hold up to a light and see through)--no fruit juice, no caffeine. Gradually advance diet as tolerated after that--bland!! Follow up with your doctor next week for reevaluation. Return to ER for any emergent concerns. Duration or Time Spent with Pa: 20 min Problem Qualifiers ADRIEN OVIEDO DO Oct 01, 2019 19:27
[2019-10-01 19:46] LABS: BASOPHIL % 0.2 % (0.0-0.2); EOSINOPHIL # 0.2 10^3/uL (0.0-0.2); EOSINOPHIL % 1.3 % (0.0-5.0); LYMPHOCYTES # 1.22 10^3/uL1 (1.0-4.8); LYMPHOCYTES % 9.7 % (24.0-44.0); MEAN CORP HGB 28.9 pg (26-34); MONOCYTES # 1.2 10^3/uL (0.3-0.8); MONOCYTES % 9.8 % (5.0-12.0); NEUTROPHIL # 9.9 10^3/uL (1.8-7.7); NEUTROPHILS % 78.8 % (41.0-85.0); PLATELET COUNT 178 10^3/uL (150-400); RED CELL DISTRIBUTION WIDTH 12.9 % (11.5-14.5)
--- NOTE | 2019-10-01 20:07 | PCM.EKG ---
[facility] Test Date: 2019-10-01 Test Time: 19:52:07 Pat Name: SERAFIN ULLOA Department: Room: ICU3 Gender: F Assembler Seat: BRANDON : 1950 Requested By: ADRIEN OVIEDO Order Number: [id number] Reading MD: Ana Oviedo Measurements Intervals [place] Rate: 109 P: 82 VA: 135 QRS: -155 QRSD: 134 T: 21 QT: 383 QTc: 516 Interpretive Statements Sinus tachycardia Right atrial enlargement Right bundle branch block Compared to ECG 12/03/2018 08:35:10 Atrial abnormality now present Right bundle-branch block now present Sinus rhythm no longer present ST (T wave) deviation no longer present Prolonged QT interval no longer present Electronically Signed On 10-02-2019 6:29:40 CDT by Ana Oviedo Please click the below link to view image of tracing.
--- NOTE | 2019-10-01 20:08 | DIREP ---
PROCEDURE:CT HEAD OR BRAIN W/O CONTRAST COMPARISON:[facility], CT, CT HEAD BRAIN W/O CONTRAST, 12/03/2018, 06:14 AM. INDICATIONS:syncope TECHNIQUE:CT images were created without intravenous contrast. FINDINGS: VENTRICLES:There is generalized prominence of the ventricles, sulci, and cisterns. CEREBRUM:There is ill-defined low density in the white matter of both cerebral hemispheres. There is no CT evidence of mass, hemorrhage, or acute infarct. CEREBELLUM:Negative. BRAINSTEM:Negative. BASAL CISTERNS:Negative. SKULL:Negative. SINUSES:Negative. OTHER:None. CONCLUSION: 1. Generalized atrophy. 2. Chronic white matter ischemic change. 3. There is no CT evidence of intracranial mass, hemorrhage, or acute infarct. 4. There is no significant change as compared with the previous examination. Dictated by: Paulo Rosario M.D. on 10/01/2019 at 08:05 PM
[2019-10-01 20:11] LABS: ALANINE AMINOTRANSFERASE(ML) 18 U/L (12-78); ALKALINE PHOSPHATASE 105 U/L (50-136); ASPARTATE AMINO TRANSFERASE 49 U/L (0-35); GLUCOSE 116 mg/dL (70-110)
[2019-10-01] MEDS ORDERED: NS 1000ML 1,000 ML STA (20:13)
--- NOTE | 2019-10-01 20:22 | DIREP ---
PROCEDURE: CT SPINE CERVICAL W/O COMPARISON:[facility], CT, CT SPINE CERVICAL W/O, 07/25/2016, 03:11 PM. INDICATIONS:fall injury FINDINGS: ALIGNMENT:Normal. VERTEBRAE:Cervical spondylosis C4-5, C5-6.. PARASPINAL AREA:Normal. OTHER:No additional findings. CERVICAL DISC LEVELS C2-C3:Normal. C3-C4:Normal. C4-C5:Uncovertebral hypertrophy with right-sided foraminal narrowing . C5-C6: small ventral osteophytes, bilateral foraminal narrowing, loss of intervertebral disc space C6-C7:Normal. C7-T1:Normal. CONCLUSION:No fracture. Cervical spondylosis from degenerative disc and joint disease. Dictated by: Elvira Nj MD on 10/01/2019 at 08:10 PM
--- NOTE | 2019-10-01 20:30 | NUR ---
C-COLLAR CLEARED AND REMOVED AT THIS TIME.
[2019-10-01] MEDS ORDERED: NS 1000ML 1,000 ML IV SCH (23:30)
[2019-10-01] MEDS ORDERED: ZOFRAN IV PRN (23:30)
[2019-10-01] MEDS ORDERED: LOMOTIL PO PRN (23:30)
[2019-10-02] MEDS ORDERED: NICOTINE 21MG PATCH TD STA (01:14)
[2019-10-02] MEDS ORDERED: NICOTINE 21MG PATCH TD ONE (01:14)
--- NOTE | 2019-10-02 02:25 | NUR ---
TELEPHONE REPORT RECEIVED FROM PALOMA MC RN.
--- NOTE | 2019-10-02 02:27 | NUR ---
REPORT CALLED AND GIVEN TO VALDO TAY. PT TAKEN VIA WHEELCHAIR TO ICU 3 BY NUNU Singletary RN.
--- NOTE | 2019-10-02 02:28 | NUR ---
ARRIVAL: PT ARRIVED FROM ER VIA STRETCHER ACCOMPANIED BY MARGE ALEXANDRE. PT ASSISTED TO TRANSFER TO ICU BED X1 ASSIST. PT ORIENTED TO ICU ENVIRONMENT. PT IS ALERT TO PERSON AND PLACE AND EXHIBITS CONFUSION WITH CONFLICTING ANSWERS. 22G IV TO RT THUMB IS SL. SITE IS PATENT AND FLUSHED WELL WITH GOOD BLOOD RETURN. CALL LIGHT AND TABLE WITHIN REACH. BED IN LOW POSITION, LOCKED, HOB ELEVATED AND SIDE RAILS UP X2. WILL CONTINUE TO MONITOR.
--- NOTE | 2019-10-02 02:46 | NUR ---
16 JIMENEZ CATHETER INSERTED USING STERILE TECHNIQUE. JIMENEZ CATHETER IS PATENT AND DRAINING URINE TO GRAVITY. STAT LOCK SECURED TO RT THIGH.
[2019-10-02 03:00] VITALS: BP 163/98
[2019-10-02 04:19] LABS: APPEARANCE,URINE CLOUDY (CLEAR); BILIRUBIN,URINE 1 MG/DL (NEGATIVE); UA COLOR YELLOW (YELLOW)
[2019-10-02 04:21] LABS: UROBILINOGEN,URINE NORMAL (NEGATIVE)
[2019-10-02 04:55] LABS: BASOPHIL % 0.4 % (0.0-0.2); EOSINOPHIL # 0.2 10^3/uL (0.0-0.2); EOSINOPHIL % 2.7 % (0.0-5.0); LYMPHOCYTES # 1.22 10^3/uL1 (1.0-4.8); LYMPHOCYTES % 14.7 % (24.0-44.0); MONOCYTES # 0.9 10^3/uL (0.3-0.8); MONOCYTES % 11.2 % (5.0-12.0); NEUTROPHIL # 5.8 10^3/uL (1.8-7.7); NEUTROPHILS % 70.5 % (41.0-85.0); PLATELET COUNT 128 10^3/uL (150-400)
[2019-10-02 05:29] LABS: CALCIUM 7.9 mg/dL (8.4-10.5); CARBON DIOXIDE 22.9 mmol/L (20.0-32)
--- NOTE | 2019-10-02 06:46 | NUR ---
REPORT TO ONCOMING SHIFT. PT CARE RELINQUISHED.
[2019-10-02] MEDS ORDERED: KCL 20MEQ/100ML 200 ML IV ONE (07:30)
--- NOTE | 2019-10-02 08:06 | NUR ---
PATIENT DEMANDS BLOOD PRESSURE CUFF BE TAKEN OFF. IS UNABLE TO TOLERATE INFLATION. UNABLE TO OBTAIN BLOOD PRESURE.
--- NOTE | 2019-10-02 08:06 | PCM.HP ---
History of Present Illness Reason for Visit: Nausea and vomiting History of Present Illness 49-year-old woman comes to the emergency room complaining of persistent nausea and vomiting of 1 day duration. She felt lightheaded dizzy when she got up to stand. Says she felt felt well before. She have chronic neck pain she is comp laining of also. The nausea vomiting persisted. No blood in her emesis. She has had no diarrhea and not reporting any sick contacts. There is some mild abdominal pain but it is in the epigastrium. It is nonradiating. Past Medical History Cardiac: HTN, Hyperlipidemia Pulmonary: Pneumonia DYNO TECHNICIAN: Seizure Past Surgical History: No pertinent hx Past Social History Smoke: No Alcohol: none Drugs: None Lives: with Family Domestic Violence: Neg Travel Hx EBOLA RISK:Travel to/contact w: No Review of Systems Constitutional: Chills, Weakness, Malaise Cardiovascular: Lt Headedness, Other Musculoskeletal: neck pain Neurological: Confusion, Other Allergies: Coded Allergies: codeine (Verified Allergy, Severe, ITCHING, 05/29/16) Scheduled Duloxetine Hcl (Cymbalta), 1 CAP PO DAILY, (Reported) Metoprolol Tartrate 50MG (Lopresser 50MG), 1 TAB PO DAILY24, (Reported) Olmesartan/Hydrochlorothiazide (Benicar Hct 40-12.5 Mg Tablet), 1 TAB PO DAILY, (Reported) Potassium Chloride (Potassium Chloride), 20 MEQ PO ACD [Magnesium Oxide], 400 MG PO BID Scheduled PRN Acetaminophen (Acetaminophen), 1,000 MG PO Q6HR PRN for PAIN Discontinued Medications Cephalexin (Keflex), 500 MG PO TID Discontinued Reason: Discontinue VTE VTE Risk Total Score: 2 VTE Risk Score VTE Risk: Score 0-1 = Low Risk (Aggressive mobilization; early ambulation; no VTE prophylaxis required) Score 2: Moderate Risk (Intermittent/Pneumatic Compression Device OR Lovenox/Heparin/Coumadin) Score 3-4: High Risk (Intermittent/Pneumatic Compression Device AND Lovenox/Heparin/Coumadin) Score > or =5: Highest Risk (Intermittent/Pneumatic Compression Device AND Lovenox/Heparin/Coumadin) Antico:Hep/LMWH/Coum/Xarelto: No Mechanical device ordered: No VTE VTE Present on Admission: No Currently receiving anticoagul: No VTE Risk Total Score: 2 Antico:Hep/LMWH/Coum/Xarelto: No Mechanical device ordered: No Exam Vital Signs Vital Signs Date Time Temp Pulse Resp B/P (MAP) Pulse Ox O2 Delivery O2 Flow Rate FiO2 10/02/19 06:42 102 18 96 Room Air 10/02/19 06:19 98.6 10/02/19 03:00 163/98 (119) General Appearance: Alert, Oriented X3, Cooperative, No acute distress HEENT: Atraumatic, PERRLA, EOMI Respiratory: Clear to auscultation, Normal air movement Cardiovascular: Regular rate, No murmurs Abdominal: Normal bowel sounds, Soft, No tenderness, No hepatospenomegaly Extremities: No clubbing, No cyanosis, No edema Skin: No rash Neuro: Normal speech, Strength at 5/5 X4 ext, Cranial nerves 3-12 NL Psych/Mental Status: Mental status NL (Chronic) Assessment/Plan Assessment/Plan Problems: (1) Gastroenteritis Status: Acute Assessment & Plan: Reviewed the electrolytes, potassium going down so we will give some replacement. Better with intravenous fluids so we will try to advance her diet She had re ceived antiemetic therapy. ICD Code: K52.9 - Noninfective gastroenteritis and colitis, unspecified SNOMED: 40698182 (2) Volume depletion Status: Acute Assessment & Plan: She had received intravenous fluids. Antiemetic and improving ICD Code: E86.9 - Volume depletion, unspecified SNOMED: 033444040 (3) UTI (urinary tract infection) Assessment & Plan: We will treat with antibiotics.The urinalysis results not returned until late in the night so we will go to the store today she do not have a fever ICD Code: N39.0 - Urinary tract infection, site not specified SNOMED: 51550577 (4) Hypokalemia due to loss of potassium Permanent Comment: With Hypomagnesemia 1.6 - IV Magnesium 2gm x 1 - PO MgO 400mg BID. - Monitor Magnesium level. - Replete K with KCl IV and KCl PO 20 mEq BID. Last Edited By: Luis Pepe MD on Jan 06, 2017 17:59 Status: Acute Assessment & Plan: Give potassium replacement. This is second to vomiting. ICD Code: E87.6 - Hypokalemia SNOMED: 43018252 Patient History: FH: heart attack 33 FATHER, , Age:57 G8 SISTER Hypertension G8 SISTER No known health problems G8 SISTER G8 SISTER 19 CHILD Unknown G8 BROTHER G8 BROTHER, , Age:40's - 50 No Family History of: Asthma Cerebrovascular disorder Chronic obstructive pulmonary disease Congestive heart failure Diabetes insipidus Diabetes mellitus Parkinson's disease ROHIT MARTIN MD Oct 02, 2019 08:06
--- NOTE | 2019-10-02 08:54 | DIREP ---
PROCEDURE:CHEST 1 VIEW COMPARISON:[facility], CR, XRAY CHEST SINGLE VW, 12/03/2018, 06:27 AM. [facility], CR, XRAY CHEST SINGLE VW, 01/05/2017, 09:20 AM. INDICATIONS:cough FINDINGS: LUNGS/PLEURA:No significant pulmonary parenchymal abnormalities. No effusions. VASCULATURE:Normal. Unremarkable pulmonary vasculature. CARDIAC:Normal. No cardiac silhouette abnormality or cardiomegaly. MEDIASTINUM:Normal. No visible mass or adenopathy. BONES:Normal. No fracture or visible bony lesion. OTHER:Negative. CONCLUSION:No acute cardiopulmonary findings. Dictated by: Ricardo Coleman M.D. on 10/02/2019 at 08:51 AM
[2019-10-02] MEDS ORDERED: ROCEPHIN IV SCH (09:00)
[2019-10-02] MEDS ORDERED: NS IV SCH (09:00)
[2019-10-02] MEDS ORDERED: NS 100ML 100 ML IV ONE (09:45)
[2019-10-02] MEDS ORDERED: ROCEPHIN ONE (09:45)
--- NOTE | 2019-10-02 10:45 | NUR ---
DISCHARGE PLAN CASE MANAGEMENT VISITED WITH PT AT BEDSIDE CONCERNING DISCHARGE PLAN AND NEEDS. LIVES AT HOME WITH SPOUSE. INDEPENDENT OF ADLS PRIOR TO THIS STAY. REQUESTED WALKER FROM [facility]. CHOICE LETTER PRESENTED, SIGNED, AND PLACED ON CHART. ORDER OBTAINED AND FAXED TO VERN CRYSTAL AT [facility]. DENIES NEED FOR HOME O2. CM EDUCATED PT ON OUTPATIENT SERVICES, HOME HEALTH, AND SNF/SBU. PCP LIST PROVIDED. DISCHARGE PLAN IS TO DC HOME SPOUSE AND CONTINUE SELF CARE. CM LEFT CONTACT INFORMATION AT BEDSIDE. CM WILL CONTINUE TO FOLLOW FOR DC NEEDS. CM NOTIFIED TODD LYLE OF ABOVE.
--- NOTE | 2019-10-02 13:15 | NUR ---
DR. MARTIN AT BEDSIDE PATIENT TO BE DISCHARGED TO HOME ON ORAL ANTIBIOTICS FOR UTI.
[2019-10-02 13:36] VITALS: BP 163/98
[2019-10-02] MEDS ORDERED: ONDA-87 PO (14:00)
[2019-10-02] MEDS ORDERED: DIPH1TAB6 PO (14:00)
[2019-10-02] MEDS ORDERED: SULF1TAB24 PO (14:01)
--- NOTE | 2019-10-02 14:31 | DIET.OP ---
Nutrition Asmt/Malnutrit 2-17 Actual Date of Review: Oct 02, 2019 Nutritional Screening: Malnutr/Diet Consult Diagnosis: gastroenteritis, syncope, UTI Pertinent Medical Hx/Surgical: Pneumonia, seizures, HTN, hyperlipidemia Subjective Information: good appetite, no weight loss Current Diet Order/Nutrition S: Full Liquid Patient /S.O: Not Indicated Pertinent Meds Current Medications Medications (Trade) Dose Ordered Sig/Veronica PRN Reason Start Time Stop Time Status Last Admin Ceftriaxone Sodium 1 gm/ Sodium Chloride 100 ml @ 100 mls/hr Q24HRS 10/02/19 09:00 11/01/19 08:59 10/02/19 09:54 Diphenoxylate HCl/ Atropine (Lomotil) 2 each PRN PRN diarrhea 10/01/19 23:30 10/31/19 23:29 Ondansetron HCl (Zofran) 4 mg Q4H PRN NAUSEA / VOMITING 10/01/19 23:30 10/31/19 23:29 Sodium Chloride 1,000 ml @ 150 mls/hr DAILY24 10/01/19 23:30 10/31/19 23:29 10/01/19 23:30 Pertinent Labs Laboratory Tests 10/01/19 19:40: White Blood Count 12.6H, Red Blood Count 4.88, Hemoglobin 14.1, Hematocrit 40.2, Mean Corpuscular Volume 82.4, Mean Corpuscular Hemoglobin 28.9, Mean Corpuscular Hemoglobin Concent 35.1, Red Cell Distribution Width 12.9, Platelet Count 178, Mean Platelet Volume 11.3H, Neutrophils (%) (Auto) 78.8, Lymphocytes (%) (Auto) 9.7L, Monocytes (%) (Auto) 9.8, Neutrophils # (Auto) 9.9H, Lymphocytes # (Auto) 1.22, Monocytes # (Auto) 1.2H, Absolute Immature Granulocyte (auto 0.03, Absolute Eosinophils (auto) 0.2, Immature Granulocytes % 0.20, Eosinophils % 1.3, Basophils % 0.2, Basophils # 0.0, Prothrombin Time 10.3, Prothrombin Time INR (Non-Therap) 1.0, Activated Partial Thromboplast Time 22.1L, Sodium Level 134, Potassium Level 3.4L, Chloride Level 97.0, Carbon Dioxide Level 27.0, Anion Gap 13.4, Blood Urea Nitrogen 34H, Creatinine 1.61H, Estimated GFR () 38.3, Est GFR (CKD-EPI)(Non-Afr Lithuanian) 31.6, BUN/Creatinine Ratio 21.0, Glucose Level 116H, Calcium Level 9.0, Total Bilirubin 1.1H, Aspartate Amino Transf (AST/SGOT) 49H, Alanine Aminotransferase (ALT/SGPT) 18, Alkaline Phosphatase 105, Total Creatine Kinase 45, Creatine Kinase MB 1.7, Troponin I < 0.02, Pro-B-Type Natriuretic Peptide 1255H, Total Protein 7.3, Albumin 3.7, Globulin 3.6, Amylase Level 28, Lipase 102L, Helicobacter pylori Screen NEGATIVE 10/01/19 21:49: Troponin I 0.03 10/02/19 02:50: Urine Collection Type CCMS, Urine Color YELLOW, Urine Appearance CLOUDYH, Urine Bilirubin 1H, Urine Ketones TRACE, Urine Specific [place] >=1.030, Urine pH 6.0, Urine Protein 500 mg/dLH, Urine Urobilinogen NORMAL, Urine Nitrate POSITIVEH, Urine Leukocyte Esterase 1+, Urine Blood 250 4+H, Urine RBC 10-25H, Urine WBC 5- 10H, Urine Bacteria MODERATEH, Urine Glucose NORMAL 10/02/19 04:20: White Blood Count 8.3, Red Blood Count 3.83L, Hemoglobin 11.5L, Hematocrit 32.7L , Mean Corpuscular Volume 85.4, Mean Corpuscular Hemoglobin 30.0, Mean Corpuscular Hemoglobin Concent 35.2, Red Cell Distribution Width 13.0, Platelet Count 128L, Mean Platelet Volume 11.5H, Neutrophils (%) (Auto) 70.5, Lymphocytes (%) (Auto) 14.7L, Monocytes (%) (Auto) 11.2, Neutrophils # (Auto) 5.8, Lymphocytes # (Auto) 1.22, Monocytes # (Auto) 0.9H, Absolute Immature Granulocyte (auto 0.04, Absolute Eosinophils (auto) 0.2, Immature Granulocytes % 0.50, Eosinophils % 2.7, Basophils % 0.4H, Basophils # 0.0, Sodium Level 139, Potassium Level 3.0L, Chloride Level 105.0, Carbon Dioxide Level 22.9, Anion Gap 14.1, Blood Urea Nitrogen 31H, Creatinine 1.53H, Estimated GFR ( [place] n) 40.6, Est GFR (CKD-EPI)(Non-Afr Lithuanian) 33.6, BUN/Creatinine Ratio 20.0, Glucose Level 123H, Calcium Level 7.9L, Total Bilirubin 0.7, Aspartate Amino Transf (AST/SGOT) 42H, Alanine Aminotransferase (ALT/SGPT) 17, Alkaline Phosphatase 82, Total Protein 5.9L, Albumin 3.0L, Globulin 2.9 Height (Feet): 5 Height (Inches): 5 Current Weight: 161 Usual Weight: 161 %UBW: 100 Recent Weight Change: No Weight Status: Appropriate GI Symptoms: Diarrhea, [place], Vomitting Food Allergies: No Cultural/Ethnic/Congregation Megan: no pertinent Usual Diet at Home: Regular Current %PO: Good(75-100%) BEE in Kcals: Use Current Weight Calories/Kcals/Kg: MSJ*1-1.4 Kcals Calculated: 9803-1780 Protein: Use Current Weight Protein g/kg/kg -35% kcals Protein Calculated: 73-154 Fluid: ml: 4124-7957 ml or 1 ml/kcal Nutritional Problem: Nutr. Problems Present Problems: Altered GI Function Etiology: gastroenteritis Signs/Symptoms: pt complaining of nausea/vomiting/diarrhea, pt with UTI Food and Nutrition Intake (Mod: <75% est energy req 7days Protein-Calorie Malnutrition: N/A Is there a minimum of two crit: No RD Comments: Monitor po intake and need for supplementation in regards to how long on a full liquid diet Expected Outcomes Goals: 1. Pt will continue to meet at least 75% of estimated needs next 3 days. 2.. Pt diet order will be advanced within the next 3 days. Discharge planning in progress with interdisciplinary team. Malnutrtion/Nutrition Risk Edu: RACHNA Sheth Oct 02, 2019 14:31
--- NOTE | 2019-10-02 15:34 | PRM.DC ---
Discharge Summary Date of Discharge: Oct 02, 2019 Reason for Visit: Nausea and vomiting Hospital Course Asymptomatic and stable on current meds.patient was started on intravenous fluids and intravenous antibiotics in the emergency room. The therapy was continued in the hospital under observation. The patient was able to be able to start on a clear liquid diet and she advanced to full liquid diet tolerating it very well without recurrence of her nausea or diarrhea. The patient labs show findings. Urinary tract infection and she was started on ceftriaxone getting a intravenous dose. There was no frequency or dysuria no flank pain. The patient symptoms improved and she is anxious to go home. General: Alert, Oriented X3, Cooperative, No acute distress HEENT: Atraumatic, PERRLA, EOMI Neck: Supple, No JVD, +2 carotid pulse wo bruit Lungs: Clear to auscultation Heart: Regular rate, Normal S1, Normal S2, No murmurs Abdomen: Normal bowel sounds, Soft, No tenderness Extremities: No clubbing, No cyanosis, No edema, Normal pulses, No tende rness/swelling Skin: No rashes, No breakdown Neuro: Normal gait, Normal speech Psych/Mental Status: Mental status NL, Mood NL Scheduled Duloxetine Hcl (Cymbalta), 1 CAP PO DAILY, (Reported) Metoprolol Tartrate 50MG (Lopresser 50MG), 1 TAB PO DAILY24, (Reported) Olmesartan/Hydrochlorothiazide (Benicar Hct 40-12.5 Mg Tablet), 1 TAB PO DAILY, (Reported) Ondansetron Hcl (Ondansetron Hcl), 4 MG PO Q6 Potassium Chloride (Potassium Chloride), 20 MEQ PO ACD Sulfamethoxazole/Trimethoprim (Bactrim Ds Tablet), 1 EACH PO BID [Magnesium Oxide], 400 MG PO BID Scheduled PRN Acetaminophen (Acetaminophen), 1,000 MG PO Q6HR PRN for PAIN Diphenoxylate Hcl/Atropine (Diphenoxylate-Atropine Tablet), 2 EACH PO PRN PRN for diarrhea Discontinued Medications Cephalexin (Keflex), 500 MG PO TID Discontinued Reason: Discontinue Sepsis Evaluation @ Discharge 10/02/19 08:08 Course Sepsis Screening Results: Posi: NEGATIVE Sepsis Qualifier/Stage: NO DEFINITE RISK Duration or Total Time Spent w: 20 min Vitals & review Data Vital Sign - Last 24 Hours 10/01/19 10/01/19 10/01/19 7/24/20 19:15 19:15 19:15 02:30 Temp 97.9 97.9 97.9 98.7 Pulse 103 103 103 Resp 18 18 18 B/P (MAP) 110/40 (63) Pulse Ox 99 99 O2 Delivery Room Air 10/02/19 10/02/19 10/02/19 10/02/19 03:00 03:18 06:19 06:42 Temp 98.6 Pulse 102 102 Resp 18 18 B/P (MAP) 163/98 (119) Pulse Ox 96 96 O2 Delivery Room Air Room Air 10/02/19 10/02/19 10/02/19 10/02/19 08:12 08:15 13:24 13:36 Temp 98.3 97.8 Pulse 96 99 97 Resp 20 14 12 B/P (MAP) Pulse Ox 97 96 97 O2 Delivery Room Air Room Air Room Air Intake and Output 10/02/19 07:00 Intake Total 979 ml Output Total 100 ml Balance 879 ml Laboratory Tests Test 10/01/19 19:40 10/01/19 21:49 10/02/19 02:50 10/02/19 04:20 White Blood Count 12.6 10^3/uL 8.3 10^3/uL Red Blood Count 4.88 10^6/uL 3.83 10^6/uL Hemoglobin 14.1 g/dL 11.5 g/dL Hematocrit 40.2 % 32.7 % Mean Corpuscular Volume 82.4 fL 85.4 fL Mean Corpuscular Hemoglobin 28.9 pg 30.0 pg Mean Corpuscular Hemoglobin Concent 35.1 g/dL 35.2 g/dL Red Cell Distribution Width 12.9 % 13.0 % Platelet Count 178 10^3/uL 128 10^3/uL Mean Platelet Volume 11.3 fL 11.5 fL Neutrophils (%) (Auto) 78.8 % 70.5 % Lymphocytes (%) (Auto) 9.7 % 14.7 % Monocytes (%) (Auto) 9.8 % 11.2 % Neutrophils # (Auto) 9.9 10^3/uL 5.8 10^3/uL Lymphocytes # (Auto) 1.22 10^3/uL1 1.22 10^3/uL1 Monocytes # (Auto) 1.2 10^3/uL 0.9 10^3/uL Absolute Immature Granulocyte (auto 0.03 10^3 u/L 0.04 10^3 u/L Absolute Eosinophils (auto) 0.2 10^3/uL 0.2 10^3/uL Immature Granulocytes % 0.20 % 0.50 % Eosinophils % 1.3 % 2.7 % Basophils % 0.2 % 0.4 % Basophils # 0.0 10^3/uL 0.0 10^3/uL Prothrombin Time 10.3 SEC Prothrombin Time INR (Non-Therap) 1.0 Activated Partial Thromboplast Time 22.1 SEC Sodium Level 134 mmol/L 139 mmol/L Potassium Level 3.4 mmol/L 3.0 mmol/L Chloride Level 97.0 mmol/L 105.0 mmol/L Carbon Dioxide Level 27.0 mmol/L 22.9 mmol/L Anion Gap 13.4 14.1 Blood Urea Nitrogen 34 mg/dL 31 mg/dL Creatinine 1.61 mg/dL 1.53 mg/dL Estimated GFR () 38.3 40.6 Est GFR (CKD-EPI)(Non-Afr Kuwaiti) 31.6 33.6 BUN/Creatinine Ratio 21.0 20.0 Glucose Level 116 mg/dL 123 mg/dL Calcium Level 9.0 mg/dL 7.9 mg/dL Total Bilirubin 1.1 mg/dL 0.7 mg/dL Aspartate Amino Transf (AST/SGOT) 49 U/L 42 U/L Alanine Aminotransferase (ALT/SGPT) 18 U/L 17 U/L Alkaline Phosphatase 105 U/L 82 U/L Total Creatine Kinase 45 U/L Creatine Kinase MB 1.7 ng/mL Troponin I < 0.02 ng/mL 0.03 ng/mL Pro-B-Type Natriuretic Peptide 1255 pg/mL Total Protein 7.3 g/dL 5.9 g/dL Albumin 3.7 g/dL 3.0 g/dL Globulin 3.6 2.9 Amylase Level 28 U/L Lipase 102 U/L Helicobacter pylori Screen NEGATIVE Urine Collection Type CCMS Urine Color YELLOW Urine Appearance CLOUDY Urine Bilirubin 1 MG/DL Urine Ketones TRACE Urine Specific [place] >=1.030 Urine pH 6.0 Urine Protein 500 mg/dL Urine Urobilinogen NORMAL Urine Nitrate POSITIVE Urine Leukocyte Esterase 1+ Urine Blood 250 4+ Urine RBC 10-25 RBC/HPF Urine WBC 5-10 WBC/HPF Urine Bacteria MODERATE Urine Glucose NORMAL Current Medications Medications (Trade) Dose Ordered Sig/Veronica PRN Reason Start Time Stop Time Status Last Admin Ceftriaxone Sodium 1 gm/ Sodium Chloride 100 ml @ 100 mls/hr Q24HRS 10/02/19 09:00 11/01/19 08:59 10/02/19 09:54 Diphenoxylate HCl/ Atropine (Lomotil) 2 each PRN PRN diarrhea 10/01/19 23:30 10/31/19 23:29 Ondansetron HCl (Zofran) 4 mg Q4H PRN NAUSEA / VOMITING 10/01/19 23:30 10/31/19 23:29 Sodium Chloride 1,000 ml @ 150 mls/hr DAILY24 10/01/19 23:30 10/31/19 23:29 10/01/19 23:30 Sepsis Infection Criteria Pres: None LEVEL 1 SEPSIS INFECTION CRITE: None/Not assessed LEVEL 2-SIRS (LIST ALL THAT AP: HR>90/min, WBC>46812 O2 Sat by Pulse Oximetry: 97 Plan Problems: (1) Gastroenteritis Status: Acute ICD Code: K52.9 - Noninfective gastroenteritis and colitis, unspecified SNOMED: 96050175 (2) Volume depletion Status: Acute ICD Code: E86.9 - Volume depletion, unspecified SNOMED: 394211074 (3) UTI (urinary tract infection) ICD Code: N39.0 - Urinary tract infection, site not specified SNOMED: 95110631 (4) Hypokalemia due to loss of potassium Permanent Comment: With Hypomagnesemia 1.6 - IV Magnesium 2gm x 1 - PO MgO 400mg BID. - Monitor Magnesium level. - Replete K with KCl IV and KCl PO 20 mEq BID. Last Edited By: Lius Pepe MD on Jan 06, 2017 17:59 Status: Acute ICD Code: E87.6 - Hypokalemia SNOMED: 25614554 Discharge Date: Oct 02, 2019 Dicharge DX: Gastroenteritis Discharge Disposition: Stable Plan Discharge home with her family. She will have regular diet with no added salt. Activity as tolerated. 3 prescriptions for urinary drug drug infection for 1 week. Follow-up with primary care provider in 1 week. ROHIT MARTIN MD Oct 02, 2019 15:34
--- NOTE | 2019-10-02 15:42 | NUR ---
PATIENT REFUSING TO GET DRESSED FOR DISCHARGE. AWAITING PATIENT'S SPOUSE ARRIVAL.
--- NOTE | 2019-10-02 16:30 | NUR ---
DISCHARGE EDUCATION PROVIDED AND NEW PRESCRIPTIONS REVIEWED WITH SPOUSE PRESENT. NEW SCRIPTS CALLED INTO [facility]. IV REMOVED FROM R HAND, CATHETER TIP INTACT. TRANSPORTED VIA WHEELCHAIR TO PRIVATE VEHICLE WITH BELONGINGS.
== END 2019-10-02 16:30 | disposition home or self-care (01) ==
LOC: EDBD 19:12 → ER 19:12 → ICU 10-02 00:24 → EDBEDREQ 10-02 00:27 → EDBEDREQSVC 10-02 00:33 → EDBEDREQ 10-02 00:33 → EDBEDREQSVC 10-02 00:34
PROVIDERS: ADMIT Family Medicine; ATTEND Family Medicine
DX: K52.9 Noninfective gastroenteritis and colitis, unspecified (principal); E87.6 Hypokalemia; E86.9 Volume depletion, unspecified; N39.0 Urinary tract infection, site not specified; E78.5 Hyperlipidemia, unspecified; R55 Syncope and collapse; G89.29 Other chronic pain; M54.2 Cervicalgia; Z90.710 Acquired absence of both cervix and uterus; Z79.899 Other long term (current) drug therapy
CPT/HCPCS: 36415 ×2; 70450; 71045; 72125; 80053 ×2; 81000; 82150; 82550; 82553; 83690; 83880; 84484 ×2; 85025 ×2; 85610; 85730; 86677; 87086; 93005; 96361 ×2; 96365; 96366; 96368; 96375; 99285; G0378 ×2; J0696 ×2; J2405; J7030 ×4; J7050 ×2; 87077; 87186; J3480

== ENCOUNTER → 2019-12-31 | Outpatient (CLI) | payer MEDICARE ==
[~2019-12-31] MED LIST changes: +AMOX1TAB63 PO; +ARIP2TAB3 PO; +DIPH1TAB6 PO; +DONE5TAB14 PO; +DOXE10CA PO; +FAMO20TA5 PO; +FERR325T15 PO; +Folic Acid PO; +HYDR-3194 PO; +Lactobacillus Acidophilus PO; +MELA3TAB31 PO; +MEMA5TAB PO; +ONDA-87 PO; -PANT40TA5 PO; +PANT40TA6 PO; +SULF1TAB24 PO
[2019-12-31 15:53] LABS: MEAN CORP HGB 28.9 pg (26-34); RED CELL DISTRIBUTION WIDTH 13.2 % (11.5-14.5)
[2019-12-31 16:12] LABS: CALCIUM 8.6 mg/dL (8.4-10.5); CARBON DIOXIDE 20.8 mmol/L (20.0-32)
== END | disposition home or self-care (01) ==
LOC: NPLAB 14:21
PROVIDERS: ATTEND Family Medicine
DX: I50.9 Heart failure, unspecified (principal); U07.1 COVID-19
CPT/HCPCS: 36415; 80053; 85027

== ENCOUNTER → 2020-01-03 | Outpatient (CLI) | payer MEDICARE ==
[2020-01-03 19:53] LABS: BASOPHIL % 0.3 % (0.0-0.2); EOSINOPHIL # 0.1 10^3/uL (0.0-0.2); EOSINOPHIL % 2.1 % (0.0-5.0); LYMPHOCYTES % 41.2 % (24.0-44.0); MEAN CORP HGB 29.9 pg (26-34); MONOCYTES # 0.3 10^3/uL (0.3-0.8); MONOCYTES % 11.7 % (5.0-12.0); NEUTROPHIL # 1.3 10^3/uL (1.8-7.7); NEUTROPHILS % 44.7 % (41.0-85.0); PLATELET COUNT 116 10^3/uL (150-400); RED CELL DISTRIBUTION WIDTH 13.3 % (11.5-14.5)
== END | disposition home or self-care (01) ==
LOC: NPLAB 19:15
PROVIDERS: ATTEND Family Medicine
DX: U07.1 COVID-19 (principal); I10 Essential (primary) hypertension
CPT/HCPCS: 85025

== ENCOUNTER → 2020-02-17 | Outpatient (CLI) | payer OTHER, MEDICARE ==
[2020-02-17 13:51] LABS: APPEARANCE,URINE CLEAR (CLEAR); BILIRUBIN,URINE NEGATIVE (NEGATIVE); UA COLOR YELLOW (YELLOW); UROBILINOGEN,URINE NORMAL (NEGATIVE)
== END | disposition home or self-care (01) ==
LOC: NPLAB 12:10
PROVIDERS: ATTEND Specialist
DX: N39.0 Urinary tract infection, site not specified (principal)
CPT/HCPCS: 81000

== ENCOUNTER 2020-08-16 12:16 | Emergency (ER) | payer MEDICARE, OTHER ==
[~2020-08-16] VITALS: Ht 165.1 cm; Wt 70.3 kg
[~2020-08-16 12:16] MED LIST changes: +BUPR150T23 PO; -BUPR150T6 PO; -VANC1VIA3 IV; +VANC1VIA34 IV
[2020-08-16 12:29] VITALS: BP 141/52
--- NOTE | 2020-08-16 12:32 | NUR ---
ARRIVAL PATIENT ARRIVED TO ED2 VIA W/C WITH FAMILY, C/O OF INCREASED HEART RATE TODAY, SPOUSE STATES THAT HOME HEALTH CAME TO THE HOME AND AFTER ASSESSMENT TOLD HIM TO BRING HER TO THE ED FOR EVAL. CORE PILER APPLIED AND VITAL SIGNS OBTAINED, DOCTOR SENAIT NOTIFIED OF PATIENT'S ARRIVAL.
[2020-08-16 12:41] LABS: BASOPHIL % 0.4 % (0.0-0.2); EOSINOPHIL % 0.3 % (0.0-5.0); LYMPHOCYTES # 2.83 10^3/uL1 (1.0-4.8); LYMPHOCYTES % 35.8 % (24.0-44.0); MEAN CORP HGB 27.5 pg (26-34); MONOCYTES # 0.5 10^3/uL (0.3-0.8); MONOCYTES % 6.6 % (5.0-12.0); NEUTROPHIL # 4.5 10^3/uL (1.8-7.7); NEUTROPHILS % 56.8 % (41.0-85.0); PLATELET COUNT 294 10^3/uL (150-400); RED CELL DISTRIBUTION WIDTH 12.4 % (11.5-14.5)
--- NOTE | 2020-08-16 12:43 | PCM.EKG ---
[facility] Test Date: 2020-08-16 Test Time: 12:37:37 Pat Name: SERAFIN ULLOA Department: Room: Gender: F Circuit Recorder: : 1950 Requested By: ALEXEY SAPP Order Number: [id number] Reading MD: Alexey SAPP Measurements Intervals [place] Rate: 114 P: 66 AK: 141 QRS: 165 QRSD: 91 T: 37 QT: 335 QTc: 462 Interpretive Statements Sinus tachycardia Right atrial enlargement Right ventricular hypertrophy Compared to ECG 11/21/2019 14:25:08 Atrial abnormality now present Right ventricular hypertrophy now present Right-axis deviation no longer present Electronically Signed On 08-18-2020 10:29:51 CDT by Alexey SAPP Please click the below link to view image of tracing.
[2020-08-16] MEDS ORDERED: KLONOPIN PO STA (13:02)
[2020-08-16] MEDS ORDERED: KLONOPIN ONE (13:07)
[2020-08-16 13:09] LABS: ALANINE AMINOTRANSFERASE(ML) 14 U/L (12-78); ALKALINE PHOSPHATASE 111 U/L (50-136); ASPARTATE AMINO TRANSFERASE 41 U/L (0-35); CALCIUM 9.1 mg/dL (8.4-10.5); CARBON DIOXIDE 21.8 mmol/L (20.0-32); GLUCOSE 126 mg/dL (70-110)
--- NOTE | 2020-08-16 13:17 | ER.PDOC ---
General Chief Complaint: General Complaint Stated Complaint: HIGH PULSE RATE TRAVEL OUT OF US: No Time seen by MD: 13:15 Source: family () Exam Limitations: clinical condition (dementia) History of Present Illness Initial Comments Patient sent here by home health because of fast heart rate on vital signs. Patient has no complaints. No chest pain or shortness of breath. Severity: moderate Associated Symptoms: denies symptoms Allergies: Coded Allergies: codeine (Verified Allergy, Severe, ITCHING, 05/29/16) Home Meds Active Scripts [Lactobacillus Acidophilus] 1 EACH CAPSULE No Conflict Check, 1 EACH PO BID for 30 Days, #60 Prov:AMBER MIRANDA MD 12/09/19 Metoprolol Tartrate 50MG (LOPRESSER 50MG) 50 Mg Tablet, 25 MG PO BID for 30 Days, #60 TAB Prov:AMBER MIRANDA MD 12/09/19 Hydralazine Hcl (HYDRALAZINE HCL) 25 Mg Tablet, 25 MG PO BID for 30 Days, #60 TAB Prov:AMBER MIRANDA MD 12/09/19 Melatonin (MELATONIN) 3 Mg Tablet, 3 MG PO HS PRN for INSOMNIA for 30 Days, #30 TAB Prov:SUNIL DONOVAN NP 12/09/19 Aripiprazole (ABILIFY) 2 Mg Tablet, 2 MG PO HS for 30 Days, #30 TAB Prov:SUNIL DONOVAN NP 12/09/19 Doxepin Hcl (DOXEPIN HCL) 10 Mg Capsule, 20 MG PO HS for 30 Days, #30 CAPSULE Prov:SUNIL DONOVAN NP 12/09/19 Memantine Hcl (NAMENDA) 5 Mg Tablet, 5 MG PO BID for 30 Days, #60 TAB Prov:SUNLI DONOVAN NP 12/09/19 Duloxetine Hcl (CYMBALTA) 30 Mg Capsule.dr, 60 MG PO DAILY for 30 Days, #30 CAPSULE Prov:SUNIL DONOVAN NP 12/09/19 Donepezil Hcl (DONEPEZIL HCL) 5 Mg Tab.rapdis, 10 MG PO HS for 30 Days, #30 TAB Prov:SUNIL DONOVAN NP 12/09/19 [Folic Acid] 1 MG TABLET No Conflict Check, 1 MG PO DAILY for 30 Days, #30 TAB Prov:ДМИТРИЙ ARMENTA MD 11/23/19 Famotidine (FAMOTIDINE) 20 Mg Tablet, 20 MG PO BID for 30 Days, #60 TAB Prov:ДМИТРИЙ ARMENTA MD 11/23/19 Ferrous Sulfate (FERROUS SULFATE) 325 Mg Tablet, 325 MG PO DAILY for 30 Days, #30 TAB Prov:ДМИТРИЙ ARMENTA MD 11/23/19 [Magnesium Oxide] 400 MG TABLET No Conflict Check, 400 MG PO BID for 30 Days, #60 Prov:MIRNA ELIZABETH MD 12/05/18 Potassium Chloride (Potassium Chloride) 20 Meq Tablet.er, 20 MEQ PO ACD for HYPOKALEMIA for 30 Days, #30 TAB Prov:MICHELLE PLEITEZ MD 01/08/17 Past Medical History Medical History: hypertension, other Surgical History: hysterectomy Family History Significant Family History: no pertinent family hx Social History Smoking: non-smoker Alcohol Use: none Drug Use: none Review of Systems Constitutional: no symptoms reported EENTM: no symptoms reported Respiratory: no symptoms reported Cardiovascular: see HPI Gastrointestinal: no symptoms reported Genitourinary: no symptoms reported All Other Systems: Reviewed and Negative Physical Exam General Appearance: No Apparent Distress, WD/WN, Anxious Neck: Non-Tender, Full Range of Motion, Supple, Normal Inspection Respiratory: chest non-tender, lungs clear, normal breath sounds, no respiratory distress, no accessory muscle use CVS: reg rate & rhythm, no murmur, no gallop, pulses nml, nml capillary refill, tachycardia Gastrointestinal: Normal Bowel Sounds, No Organomegaly, No Pulsatile Mass, Non Tender Back: Normal Inspection, No CVA Tenderness, No Vertebral Tenderness Extremities: Normal Range of Motion, Non-Tender, Normal Inspection, No Pedal Edema Neurologic/Psychiatric: latin professor II-XII NML as Tested, No Motor/Sensory Deficits, Alert, Normal Mood/Affect, Oriented x 3 Skin: Normal Color Results/Orders Results/Orders Orders - ALEXEY SAPP MD Cbc With Auto Diff (08/16/20 12:29) Comprehensive Metabolic Panel (08/16/20 12:29) Creatine Kinase (08/16/20 12:29) Creatine Kinase Mb (08/16/20 12:29) Troponin I (08/16/20 12:29) Probnp B-Type Plastics Factory Worker (08/16/20 12:29) PT (08/16/20 12:29) Partial Thromboplastin Time. (08/16/20 12:29) D-Dimer (08/16/20 12:29) Xr Chest 1v (08/16/20 12:29) Ekg-Routine (08/16/20 12:29) Clonazepam (Klonopin) (08/16/20 13:02) Clonazepam (Klonopin) (08/16/20 13:07) Vital Signs Date Time Temp Pulse Resp B/P (MAP) Pulse Ox O2 Delivery O2 Flow Rate FiO2 08/16/20 13:40 98.2 107 30 145/86 (105) 98 Room Air 08/16/20 12:29 98.2 115 30 98 08/16/20 12:29 98.2 115 30 08/16/20 12:29 98.2 115 30 141/52 (81) 98 Room Air Administered Medications Medications (Trade) Dose Ordered Sig/Veronica Route PRN Reason Start Time Stop Time Status Last Admin Dose Admin Clonazepam (Klonopin) 0.5 mg STAT STAT PO 08/16/20 13:02 08/16/20 13:03 DC 08/16/20 13:09 0.5 MG Laboratory Tests Test 08/16/20 12:38 White Blood Count 7.9 10^3/uL (4.5-11.0) Red Blood Count 5.23 10^6/uL (4.00-5.20) H Hemoglobin 14.4 g/dL (12.0-15.0) Hematocrit 44.8 % (36.0-46.0) Mean Corpuscular Volume 85.7 fL (78-100) Mean Corpuscular Hemoglobin 27.5 pg (26-34) Mean Corpuscular Hemoglobin Concent 32.1 g/dL (33-36.5) L Red Cell Distribution Width 12.4 % (11.5-14.5) Platelet Count 294 10^3/uL (150-400) Mean Platelet Volume 10.3 fL (7.8-11.0) Neutrophils (%) (Auto) 56.8 % (41.0-85.0) Lymphocytes (%) (Auto) 35.8 % (24.0-44.0) Monocytes (%) (Auto) 6.6 % (5.0-12.0) Neutrophils # (Auto) 4.5 10^3/uL (1.8-7.7) Lymphocytes # (Auto) 2.83 10^3/uL1 (1.0-4.8) Monocytes # (Auto) 0.5 10^3/uL (0.3-0.8) Absolute Immature Granulocyte (auto 0.01 10^3 u/L (0-2) Absolute Eosinophils (auto) 0.0 10^3/uL (0.0-0.2) Immature Granulocytes % 0.10 % (0.00-0.50) Eosinophils % 0.3 % (0.0-5.0) Basophils % 0.4 % (0.0-0.2) H Basophils # 0.0 10^3/uL (0.0-0.1) Prothrombin Time 11.6 SEC (9.6-12.0) Prothrombin Time INR (Non-Therap) 1.1 Activated Partial Thromboplast Time 28.5 SEC (24.67-30.72) D-Dimer 0.51 mg/L (0.19-0.49) *H Sodium Level 138 mmol/L (132-145) Potassium Level 3.7 mmol/L (3.6-5.2) Chloride Level 103.0 mmol/L (96-109) Carbon Dioxide Level 21.8 mmol/L (20.0-32) Anion Gap 16.9 Blood Urea Nitrogen 17 mg/dL (7-18) Creatinine 1.82 mg/dL (0.59-1.40) H Estimated GFR () 33.1 (>/=60) Est GFR (CKD-EPI)(Non-Afr Burundian) 27.4 (>/=60) BUN/Creatinine Ratio 9.0 Glucose Level 126 mg/dL (70-110) H Calcium Level 9.1 mg/dL (8.4-10.5) Total Bilirubin 0.7 mg/dL (0.2-1.0) Aspartate Amino Transferase (AST) 41 U/L (0-35) H Alanine Aminotransferase (ALT) 14 U/L (12-78) Alkaline Phosphatase 111 U/L (50-136) Total Creatine Kinase 70 U/L (26-192) Creatine Kinase MB 1.4 ng/mL (0.5-3.6) Troponin I < 0.02 ng/mL (0.00-0.05) Pro-B-Type Natriuretic Peptide 228 pg/mL (0-125) H Total Protein 7.4 g/dL (6.4-8.2) Albumin 3.6 g/dL (3.4-5.0) Globulin 3.8 Albumin/Globulin Ratio 0.947 Progress Progress Discussed with Dr. Elizabeth. Her creatinine of 1.8 is about her baseline because she has chronic kidney disease. The rest of the labs are unremarkable. He told me to discharge patient home on same medications and to follow-up with him in the office. Discussed these with the patient and her and both voiced understanding. Patient is feeling better with Klonopin. Her HR is down to 100. Patient is feeling better to go home. does not give her medications as directed so I instructed him to follow the instructions of his medications and give then the way it supposed to be. He voiced understanding. EKG/XRAY/CT/US EKG: NSR, no ST T wave changes EKG Comments: HR 114, sinus tachycardia XRAY: chest (No active disease) ER DEPART Departure Time of Disposition: 13:55 Disposition: 01 HOME / SELF CARE / HOMELESS Impression: Primary Impression: Anxiety Condition: Improved Referrals: MIRNA ELIZABETH MD (PCP) PRIMARY CARE PROVIDER Additional Instructions: Follow-up with Dr. Elizabeth in 1 to 2 days Return to ED if worsening symptoms or concerns Duration or Time Spent with Pa: 60 min ALEXEY SAPP MD Aug 16, 2020 13:17
--- NOTE | 2020-08-16 13:21 | DIREP ---
PROCEDURE:CHEST 1 VIEW COMPARISON:CT, CT CHEST W/O, 01/06/2017, 04:06 PM. [facility], CR, XRAY CHEST SINGLE VW, 11/21/2019, 02:20 PM. INDICATIONS:Palpitations FINDINGS: LUNGS/PLEURA:Mild blunting at the right costophrenic angle is unchanged consistent with mild pleural scarring. No infiltrate or pleural effusion is seen. VASCULATURE:Normal. Unremarkable pulmonary vasculature. CARDIAC:Normal. No cardiac silhouette abnormality or cardiomegaly. MEDIASTINUM:Normal. No visible mass or adenopathy. BONES:Prominent right lateral osteophytes are again seen in the mid thoracic spine. OTHER:Negative. CONCLUSION:There is stable mild chronic blunting at the right costophrenic angle consistent with pleural scarring without acute cardiopulmonary disease. Dictated by: Armin Morse M.D. on 08/16/2020 at 01:17 PM
[2020-08-16 13:40] VITALS: BP 145/86
--- NOTE | 2020-08-16 13:52 | NUR ---
[facility] DOCTOR SENAIT SPOKE WITH DOCTOR ELIZABETH, DISCHARGE PATIENT HOME ON CURRENTLY MEDICATIONS.
[2020-08-16] MEDS ORDERED: DONE5TAB7 PO (14:06)
[2020-08-16] MEDS ORDERED: DONE10TA57 PO (14:06)
[2020-08-16] MEDS ORDERED: HYDR12.58 PO (14:06)
[2020-08-16] MEDS ORDERED: ALPR0.25 PO (14:06)
== END 2020-08-16 14:00 | disposition home or self-care (01) ==
LOC: ER 12:16
DX: F41.9 Anxiety disorder, unspecified (principal); R79.1 Abnormal coagulation profile; I10 Essential (primary) hypertension; Z79.899 Other long term (current) drug therapy; Z88.5 Allergy status to narcotic agent; Z90.710 Acquired absence of both cervix and uterus
CPT/HCPCS: 36415; 71045; 80053; 82550; 82553; 83880; 84484; 85025; 85379; 85610; 85730; 93005; 99285

== ENCOUNTER 2021-08-19 19:25 | Emergency (ER) | payer MEDICARE ==
[~2021-08-19 19:25] MED LIST changes: +ALPR0.25 PO; +AMOX1TAB60 PO; +CHOL500045 PO; +DOCU-15 PO; +DONE10TA57 PO; -DONE5TAB14 PO; +DONE5TAB7 PO; -DULO60CA7 PO; +DULO60CA8 PO; +HYDR12.58 PO; -LISI1TAB20 PO; +LISI1TAB41 PO; +MIRT15TA3 PO; -VANC1VIA34 IV; +VANC1VIA38 IV; +[UNRECOGNIZED DRUG - CODE] PO
--- NOTE | 2021-08-19 19:25 | NUR ---
71 y/o female presents to Er via EMS,20 amos iv placed at the sceen, pt accompained by EMT-P x2, pt spouse reports pt fell in yard, pt transfered self to ER bed 3, skin warm dry good eye contact, answers questions appropriately, oriented x 2person and place, pt lower extremities in constant movement.pt states she feels weird. monitors applied, BP elevated, pt reports she sees 1-2 fingers when held up 2 fingers, spouse reports pt has had some difficulty with her vision.
[2021-08-19] MEDS ORDERED: TRANDATE IV STA ×3 (19:57→22:08)
--- NOTE | 2021-08-19 20:02 | PCM.EKG ---
[facility] Test Date: 2021-08-19 Test Time: 19:47:38 Pat Name: SERAFIN ULLOA Department: Room: Gender: F Residential Program Manager: JOSIANE : 1950 Requested By: VALERIY ESTEVEZ Order Number: [id number] Reading MD: Valeriy Estevez Measurements Intervals [place] Rate: 90 P: 102 DE: 132 QRS: 107 QRSD: 91 T: 71 QT: 384 QTc: 470 Interpretive Statements Right and left arm electrode reversal, interpretation assumes no reversal Sinus rhythm S1,S2,S3 pattern Baseline wander in lead(s) V1,V3,V4,V5,V6 Compared to ECG 09/12/2020 10:05:06 Atrial abnormality no longer present Electronically Signed On 08-20-2021 4:26:41 CDT by Valeriy Estevez Please click the below link to view image of tracing.
[2021-08-19 20:05] LABS: BASOPHIL % 0.4 % (0.0-0.2); EOSINOPHIL % 0.2 % (0.0-5.0); LYMPHOCYTES # 1.12 10^3/uL1 (1.0-4.8); LYMPHOCYTES % 13.8 % (24.0-44.0); MEAN CORP HGB 30.4 pg (26-34); MONOCYTES # 0.4 10^3/uL (0.3-0.8); MONOCYTES % 5.3 % (5.0-12.0); NEUTROPHIL # 6.5 10^3/uL (1.8-7.7); NEUTROPHILS % 80.3 % (41.0-85.0); PLATELET COUNT 163 10^3/uL (150-400); RED CELL DISTRIBUTION WIDTH 13.1 % (11.5-14.5)
[2021-08-19 20:08] VITALS: BP 200/86
[2021-08-19 20:09] LABS: BILIRUBIN,URINE NEGATIVE (NEGATIVE); UROBILINOGEN,URINE 0.2 E.U./dL (0.2)
[2021-08-19 20:24] LABS: CARBON DIOXIDE 20.3 mmol/L (20.0-32)
--- NOTE | 2021-08-19 20:37 | DIREP ---
PROCEDURE:CHEST 1 VIEW COMPARISON:[facility], CR, XRAY CHEST SINGLE VW, 09/09/2020, 09:03 AM. INDICATIONS:AMS, FALL, HTN FINDINGS: LUNGS/PLEURA:No focal consolidation, pleural effusion or pneumothorax. VASCULATURE:Normal. Unremarkable pulmonary vasculature. CARDIAC:Normal. No cardiac silhouette abnormality or cardiomegaly. MEDIASTINUM:Normal. No visible mass or adenopathy. BONES:Normal. No fracture or visible bony lesion. OTHER:Negative. CONCLUSION:No active cardiopulmonary process demonstrated. Dictated by: Lee Hale M.D. on 08/19/2021 at 08:34 PM
[2021-08-19] MEDS ORDERED: ATIVAN IV STA (20:49)
[2021-08-19] MEDS ORDERED: ROCEPHIN 1,000 MG in NS 100ML 100 ML IV STA (20:49)
--- NOTE | 2021-08-19 20:58 | ER.PDOC ---
General Chief Complaint: Requesting Medical Care Stated Complaint: FALL Time seen by MD: 19:57 Source: patient, family (spouse ), EMS Exam Limitations: clinical condition History of Present Illness Initial Comments Pt brought in by EMS with c/o fall and change in her mental status after she was found on the ground in her yard. Reports states she may have fallen due to the oversized pants she has on. On arrival to the ER, she is AA, limited orientation and very restless. She c/o pain in her right hand pain. Occurred: just prior to arrival Where: home Severity: moderate Injuries/Pain Location: upper extremity (right hand swelling, left hand and leg ) Context: Tripped ("possibly from oversized pants") Loss of Consciousness: Unsure Associated Symptoms: confusion ("somewhat") Allergies: Coded Allergies: codeine (Verified Allergy, Severe, ITCHING, 05/29/16) MEDS Active Scripts Cholecalciferol (Vitamin D3) (Vitamin D3) 125 Mcg (5000 Unit) Tablet, 5000 UNIT PO DAILY for 30 Days, TAB Prov:PETER SMITH MD 09/21/20 Docusate Sodium (EASY-LAX) 100 Mg Capsule, 100 MG PO BID for 30 Days, #30 CAPSULE Prov:SUNIL DONOVAN NP 09/20/20 Mirtazapine (REMERON) 15 Mg Tab.rapdis, 15 MG PO HS for 30 Days, #30 TAB Prov:SUNIL DONOVAN NP 09/20/20 Memantine Hcl (NAMENDA) 5 Mg Tablet, 10 MG PO BID for 30 Days, #60 TAB Prov:SUNIL DONOVAN NP 09/20/20 Metoprolol Tartrate 50MG (LOPRESSER 50MG) 50 Mg Tablet, 25 MG PO BID for 30 Days, #60 TAB Prov:AMBER MIRANDA MD 12/09/19 Hydralazine Hcl (HYDRALAZINE HCL) 25 Mg Tablet, 25 MG PO BID for 30 Days, #60 TAB Prov:AMBER MIRANDA MD 12/09/19 Famotidine (FAMOTIDINE) 20 Mg Tablet, 20 MG PO BID for 30 Days, #60 TAB Prov:ДМИТРИЙ ARMENTA MD 11/23/19 Past Medical History Medical History: no pertinent history Surgical History: hysterectomy, tonsillectomy Social History Alcohol Use: occassionally Drug Use: none Review of Systems Constitutional: denies chills, denies diaphoresis, denies fever, denies malaise, denies weakness Eyes: denies blurred vision Respiratory: denies cough, denies shortness of breath Cardiovascular: denies chest pain, denies palpitations Gastrointestinal: denies abdominal pain, denies nausea, denies vomiting Musculoskeletal: joint pain (left knee abrasion and toe abrasion of the right foot.) Skin: change in color (right hand eccymosis, abrasion left hand and leg/ knee), dryness Psychiatric/Neurological: other (restless and acting somewhat confused) All Other Systems: Reviewed and Negative Physical Exam General Appearance: No Apparent Distress (but appears somewhat confused and restless), WD/WN, Anxious Head: No Evidence of Injury Eyes: bilateral eye normal inspection, bilateral eye PERRL, bilateral eye EOMI Ears, Nose, Mouth, Throat: Hearing Grossly Normal, No Evidence of ENT Injury, No Dental Injury Neck: Non-Tender, Normal Alignment, Nexus criteria neg, Normal Inspection Cardiovascular/Respiratory: Regular Rate, Rhythm, No M/R/G, Normal Peripheral Pulses, No JVD, Normal Breath Sounds, No Respiratory Distress Gastrointestinal: Normal Bowel Sounds, No Organomegaly, No Pulsatile Mass, Non Tender, Soft Back: Normal Inspection, No CVA Tenderness, No Vertebral Tenderness Extremities: Normal Range of Motion, Non-Tender, No Pedal Edema, Other (abrasion left john and toe of the right foot. Restless movements) Neurologic/Psychiatric: house mover II-XII NML as Tested, No Motor/Sensory Deficits, Alert, Oriented x 3, Other (somewhat confused and restless) Skin: Normal Color, Warm/Dry, Other (abrasion left hand and leg. Ecchymoses and swelling of the right hand.) Ophiem Coma Score Best Eye Response: (4) Open Spontaneously Best Verbal Response: (5) Oriented Best Motor Response: (6) Obeys Commands Ramin Total: 15 Splinting Splinting : Hand-Made Type: OCL (right ulnar gutter splint applied by VALDO MIRANDA. ) Splint: ulnar (gutter) Pre-Proc Neuro Vasc Exam: normal Post-Proc Neuro Vasc Exam: normal Results/Orders Results/Orders Orders - JG ESTEVEZ MD Cbc With Auto Diff (08/19/21 19:57) Comprehensive Metabolic Panel (08/19/21 19:57) Creatine Kinase (08/19/21 19:57) PT (08/19/21 19:57) Xr Chest 1v (08/19/21 19:57) Partial Thromboplastin Time. (08/19/21 19:57) Urinalysis (08/19/21 19:57) Ekg-Routine (08/19/21 19:57) Ct Head Wo Contrast (08/19/21 19:57) Rt O2 Per Hour (08/19/21 19:57) Saline Lock (08/19/21 19:57) Place Dominguez Catheter (08/19/21 19:57) Troponin I High Sensitivity (08/19/21 19:57) Labetalol Hcl (Trandate) (08/19/21 19:57) Drug Scrn Med W Confirmation (08/19/21 19:57) Alcohol(Ml) (08/19/21 19:57) Blood Culture (08/19/21 19:57) Lactic Acid(Ml) (08/19/21 19:57) Labetalol Hcl (Trandate) (08/19/21 20:01) 0.9 % Sodium Chloride (Ns 1000ml) (08/19/21 21:00) Ceftriaxone Sodium (Rocephin) (08/19/21 20:49) Lorazepam (Ativan) (08/19/21 20:49) Xr Hand Rt (08/19/21 20:58) Urine Culture (08/19/21 19:41) Ceftriaxone Sodium (Rocephin) (08/19/21 21:08) 0.9 % Sodium Chloride (Ns 100ml) (08/19/21 21:08) Lorazepam (Ativan) (08/19/21 21:09) Morphine Sulfate (Morphine Sulfate) (08/19/21 21:47) Ondansetron Hcl/Pf (Zofran) (08/19/21 21:47) Morphine Sulfate (Morphine Sulfate) (08/19/21 21:48) Ondansetron Hcl/Pf (Zofran) (08/19/21 21:48) Labetalol Hcl (Trandate) (08/19/21 22:08) Physician Consult (08/19/21 22:08) Clopidogrel Bisulfate (Plavix) (08/19/21 22:28) Aspirin (Aspirin) (08/19/21 22:28) Atorvastatin Calcium (Lipitor) (08/19/21 22:28) Aspirin (Aspirin) (08/19/21 23:16) Clopidogrel Bisulfate (Plavix) (08/19/21 23:16) Atorvastatin Calcium (Lipitor) (08/20/21 21:00) Nicardipine In Nacl, Iso-Osm (Cardene-Na (08/20/21 00:00) Vital Signs Date Time Temp Pulse Resp B/P (MAP) Pulse Ox O2 Delivery O2 Flow Rate FiO2 08/19/21 20:08 98.1 94 20 99 08/19/21 20:08 98.1 94 20 08/19/21 20:08 98.1 94 20 200/86 (124) 99 Room Air* 0 21 Administered Medications Medications (Trade) Dose Ordered Sig/Veronica Route PRN Reason Start Time Stop Time Status Last Admin Dose Admin Aspirin (Aspirin) 325 mg STAT STAT PO 08/19/21 22:28 08/19/21 22:38 DC 08/19/21 23:32 325 MG Atorvastatin Calcium (Lipitor) 40 mg HS PO 08/20/21 21:00 08/20/21 01:08 DC 08/19/21 23:34 40 MG Ceftriaxone Sodium 1000 mg/ Sodium Chloride 100 ml @ 100 mls/hr OT STAT IV 08/19/21 20:49 08/19/21 21:48 DC 08/19/21 21:14 100 MLS/HR Clopidogrel Bisulfate (Plavix) 75 mg STAT STAT PO 08/19/21 22:28 08/19/21 22:38 DC 08/19/21 23:31 75 MG Labetalol HCl (Trandate) 10 mg OT STAT IV 08/19/21 20:01 08/19/21 20:03 DC 08/19/21 20:43 10 MG Labetalol HCl (Trandate) 10 mg OT STAT IV 08/19/21 22:08 08/19/21 22:12 DC 08/19/21 22:18 10 MG Lorazepam (Ativan) 1 mg STAT STAT IV 08/19/21 20:49 08/19/21 20:51 DC 08/19/21 21:14 1 MG Morphine Sulfate (Morphine Sulfate) 4 mg STAT STAT IV 08/19/21 21:48 08/19/21 21:52 DC 08/19/21 21:54 4 MG Ondansetron HCl (Zofran) 4 mg OT STAT IV 08/19/21 21:48 08/19/21 21:52 DC 08/19/21 21:55 4 MG Sodium Chloride 1,000 ml @ 100 mls/hr OT ONCE IV 08/19/21 21:00 08/20/21 01:08 DC 08/19/21 20:45 100 MLS/HR Laboratory Tests Test 08/19/21 19:35 08/19/21 19:41 White Blood Count 8.1 10^3/uL (4.5-11.0) Red Blood Count 3.29 10^6/uL (4.00-5.20) L Hemoglobin 10.0 g/dL (12.0-15.0) L Hematocrit 29.6 % (36.0-46.0) L Mean Corpuscular Volume 90.0 fL (78-100) Mean Corpuscular Hemoglobin 30.4 pg (26-34) Mean Corpuscular Hemoglobin Concent 33.8 g/dL (33-36.5) Red Cell Distribution Width 13.1 % (11.5-14.5) Platelet Count 163 10^3/uL (150-400) Mean Platelet Volume 10.9 fL (7.8-11.0) Neutrophils (%) (Auto) 80.3 % (41.0-85.0) Lymphocytes (%) (Auto) 13.8 % (24.0-44.0) L Monocytes (%) (Auto) 5.3 % (5.0-12.0) Neutrophils # (Auto) 6.5 10^3/uL (1.8-7.7) Lymphocytes # (Auto) 1.12 10^3/uL1 (1.0-4.8) Monocytes # (Auto) 0.4 10^3/uL (0.3-0.8) Absolute Immature Granulocyte (auto 0.01 10^3 u/L (0-2) Absolute Eosinophils (auto) 0.0 10^3/uL (0.0-0.2) Immature Granulocytes % 0.10 % (0.00-0.50) Eosinophils % 0.2 % (0.0-5.0) Basophils % 0.4 % (0.0-0.2) H Basophils # 0.0 10^3/uL (0.0-0.1) Prothrombin Time 11.1 SEC (9.1-11.5) Prothrombin Time INR (Non-Therap) 1.1 Activated Partial Thromboplast Time 23.4 SEC (22.5-33.1) Urine Collection Type CATH Urine Color YELLOW Urine Appearance CLOUDY Urine Bilirubin NEGATIVE (NEGATIVE) Urine Ketones NEGATIVE (NEGATIVE) Urine Specific [place] 1.020 (1.005-1.030) Urine pH 5.5 (4.5-8.0) Urine Protein 2+ (NEGATIVE) H Urine Urobilinogen 0.2 E.U./dL (0.2) Urine Nitrate NEGATIVE (NEGATIVE) Urine Leukocyte Esterase 1+ (NEGATIVE) H Urine Glucose (Auto)(UA) NEGATIVE (NEGATIVE) Urine Blood TRACE-INTACT (NEGATIVE) H Urine RBC 0-2 RBC/HPF (NONE SEEN) Urine WBC 10-25 WBC/HPF (0-2) H Urine Squamous Epithelial Cells FEW (<=FEW) Urine Renal Epithelial Cells FEW (NONE SEEN) A Urine Bacteria MODERATE (NONE SEEN) H Sodium Level 140 mmol/L (132-145) Potassium Level 3.9 mmol/L (3.6-5.2) Chloride Level 108.0 mmol/L (96-109) Carbon Dioxide Level 20.3 mmol/L (20.0-32) Anion Gap 15.6 Blood Urea Nitrogen 22 mg/dL (7-18) H Creatinine 2.21 mg/dL (0.59-1.40) *H Estimated GFR () 26.4 (>/=60) Est GFR (CKD-EPI)(Non-Afr Mexican) 21.8 (>/=60) BUN/Creatinine Ratio 9.0 Glucose Level 113 mg/dL (70-110) H Lactic Acid Level 1.9 mmol/L (0.5-1.9) Calcium Level 8.2 mg/dL (8.4-10.5) L Total Bilirubin 0.6 mg/dL (0.2-1.0) Aspartate Amino Transferase (AST) 31 U/L (0-35) Alanine Aminotransferase (ALT) 15 U/L (12-78) Alkaline Phosphatase 97 U/L (50-136) Total Creatine Kinase 69 U/L (26-192) Troponin I High Sensitivity 19 ng/L (0-50) Total Protein 6.3 g/dL (6.4-8.2) L Albumin 3.3 g/dL (3.4-5.0) L Globulin 3.0 Albumin/Globulin Ratio 1.100 Urine Opiates Screen NEGATIVE (c/o300ng/mL) Urine Methadone Screen NEGATIVE (c/o300ng/mL) Urine Barbiturates Screen NEGATIVE (c/o200ng/mL) Urine Phencyclidine Screen NEGATIVE (c/o 25ng/mL) Ur Amphetamine/Methamphetamine NEGATIVE (mn6785td/mL) Urine MDMA Screen (Ecstasy) NEGATIVE (c/o300ng/mL) Urine Benzodiazepines Screen NEGATIVE (c/o200ng/mL) Urine Cocaine Metabolite Screen NEGATIVE (c/o300ng/mL) Ur Tetrahydrocannabinol (THC) Scrn NEGATIVE (c/o 50ng/mL) Serum Alcohol 5 mg/dL (0-50) Progress Progress Pt's spouse later appeared, reported she had been acting restless for the past couple of days, but fell today and unable to get that prompted ER visit. NIHSS - 3 CT head: Acute / subacute cortical infarction of the left posterior frontal and left lobes. MRI of the brain recommended without contrast to exclude the possibility of mass lesion. Severe chronic microvascular ischemic changes noted. CTA and MRI unavailable, will transfer pt for higher level of care. TeleNeuro consulted 10:[address] Roddy Hickey who recommended ASA, PLAVIX and Lipitor as well as pt transfer for further evaluation and management. [facility] consulted at 10:49pm, declined acceptance for transfer due to no beds. [facility] consulted at 10:52 pm declined acceptance for transfer due to no IR nor LVO intervention capabilities this weekend. [facility] called backed at 23:09 for transfer acceptance to [facility]/ ER / Dr. Scott EKG/XRAY/CT/US EKG Comments: No acute ischemic changes noted. XRAY: chest (No acute cardiopulmonary process) ER DEPART Departure Time of Disposition: 23:25 Disposition: 02 SHORT TERM HOSPITAL Impression: Primary Impression: Acute CVA (cerebrovascular accident) Additional Impressions: Hypertensive emergency Change in mental status UTI (urinary tract infection) Fracture of fifth metacarpal bone of right hand Fall Acute on chronic renal insufficiency Condition: Stable Referrals: PCP,UNKNOWN (PCP) PRIMARY CARE PROVIDER Duration or Time Spent with Pa: see critical time. Critical Care Note Total Time (mins): 60 Comments Critical time includes patient management, consults as well as care coordination. Problem Qualifiers JG ESTEVEZ MD Aug 19, 2021 20:58
[2021-08-19] MEDS ORDERED: NS 1000ML 1,000 ML IV ONE (21:00)
[2021-08-19] MEDS ORDERED: NS 100ML 100 ML IV ONE (21:08)
[2021-08-19] MEDS ORDERED: ROCEPHIN ONE (21:08)
[2021-08-19] MEDS ORDERED: ATIVAN ONE (21:09)
--- NOTE | 2021-08-19 21:41 | DIREP ---
PROCEDURE:XRAY HAND MIN 3 VW-RT COMPARISON:None. INDICATIONS:pain s/p fall FINDINGS: BONES:Nondisplaced spiral fracture of the 5th metacarpal. Bones are demineralized. JOINTS:Moderate 1st CMC and triscaphe degenerative changes. Scattered IP joint degenerative changes. SOFT TISSUES:Normal. OTHER:No additional findings. CONCLUSION: 1. Nondisplaced spiral fracture 5th metacarpal shaft. 2. Scattered osteoarthritis. Dictated by: Lee Hale M.D. on 08/19/2021 at 09:39 PM
--- NOTE | 2021-08-19 21:46 | DIREP ---
PROCEDURE:CT HEAD OR BRAIN W/O CONTRAST COMPARISON:[facility], CR, XRAY CHEST SINGLE VW, 08/16/2020, 12:54 PM. [facility], CT, CT HEAD BRAIN W/O CONTRAST, 10/01/2019, 07:53 PM. INDICATIONS:AMS, FALL, HTN TECHNIQUE:CT images were created without intravenous contrast. FINDINGS: VENTRICLES:There is mild prominence of the ventricles and cortical sulci consistent with age related involutional changes. CEREBRUM:Subacute appearing focal infarct involving the left posterior frontal lobe and left occipital lobe. Extensive periventricular hypoattenuation consistent with severe chronic microvascular ischemic changes. CEREBELLUM:Negative. BRAINSTEM:Negative. BASAL CISTERNS:Negative. SKULL:Normal. SINUSES:Normal. OTHER:Intracranial carotid siphon atherosclerotic calcifications. CONCLUSION: 1. Acute/subacute cortical infarction suspected involving the left posterior frontal and left occipital lobes. MRI of the brain with without contrast should be considered to exclude the less likely possibility of mass lesion. 2. Severe chronic microvascular ischemic changes. Dictated by: Lee Hale M.D. on 08/19/2021 at 09:43 PM
[2021-08-19] MEDS ORDERED: MORPHINE SULFATE ONE (21:47)
[2021-08-19] MEDS ORDERED: ZOFRAN ONE (21:47)
[2021-08-19] MEDS ORDERED: MORPHINE SULFATE IV STA (21:48)
[2021-08-19] MEDS ORDERED: ZOFRAN IV STA (21:48)
[2021-08-19] MEDS ORDERED: LIPITOR PO STA (22:28)
[2021-08-19] MEDS ORDERED: ASPIRIN PO STA (22:28)
[2021-08-19] MEDS ORDERED: PLAVIX PO STA (22:28)
--- NOTE | 2021-08-19 22:52 | NUR ---
Contact with MARK Pino RN for tranfer request,
[2021-08-19] MEDS ORDERED: PLAVIX ONE (23:16)
[2021-08-19] MEDS ORDERED: ASPIRIN ONE (23:16)
--- NOTE | 2021-08-19 23:21 | NUR ---
2240 Dr. Pereyra neurologist on tele confrence, [facility] 3
--- NOTE | 2021-08-19 23:23 | NUR ---
2308 Pt accepted to [facility] ER to Er transfer Dr. Pettit accepting.
[2021-08-20] MEDS ORDERED: CARDENE-NACL 20 MG/200 ML SOLN 200 ML IV SCH
--- NOTE | 2021-08-20 00:07 | NUR ---
[facility] here for pt to transfer to [facility]
[2021-08-20] MEDS ORDERED: LIPITOR PO SCH (21:00)
== END 2021-08-20 00:25 | disposition short-term general hospital (02) ==
LOC: ER 19:25
DX: I63.9 Cerebral infarction, unspecified (principal); S62.306A Unspecified fracture of fifth metacarpal bone, right hand, initial encounter for closed fracture; I16.1 Hypertensive emergency; N18.9 Chronic kidney disease, unspecified; F10.20 Alcohol dependence, uncomplicated; N39.0 Urinary tract infection, site not specified; R41.82 Altered mental status, unspecified; W01.0XXA Fall on same level from slipping, tripping and stumbling without subsequent striking against object, initial encounter; Y93.89 Activity, other specified; Y92.009 Unspecified place in unspecified non-institutional (private) residence as the place of occurrence of the external cause; Y99.8 Other external cause status; Z88.5 Allergy status to narcotic agent; Z90.710 Acquired absence of both cervix and uterus
CPT/HCPCS: 29125; 36415; 70450; 71045; 73130; 80053; 80307; 81001; 82077; 82550; 83605; 84484; 85025; 85610; 85730; 87040 ×2; 87086; 93005; 96365; 96375; 96376; 99291; J0696 ×2; J2060; J2405; 87077; 87186